=== PATIENT | female | born 1935 | race Caucasian/White ===

== ENCOUNTER 2016-04-24 08:31 | Inpatient (IN) | payer OTHER, BC ==
--- NOTE | 2016-04-24 09:30 | PDOC ---
History of Present Illness - General Chief Complaint: Injury Stated Complaint: LEG PAIN Time Seen by Provider: 04/24/16 08:34 History Source: Patient Exam Limitations: No Limitations - History of Present Illness Initial Comments: 04/24/16 09:30 80-year-old female presents to the ED status post mechanical fall. Patient states was letting her dogs out and had tripped on the carpet causing her to land on her left knee. Patient states was unable to get up secondary to the pain and called EMS who assisted her to the stretcher and brought her to the ER. Patient states no previous injury to the affected area, radiation of pain, headache, chest pain, dizziness, back pain or neck pain. Occurred: reports: just prior to arrival Severity: reports: mild Pain Location: reports: lower extremity Method of Injury: Yes: fall Modifying Factors: improves with: None Loss of Consciousness: no loss of consciousness Associated Symptoms (Fall): trouble walking Past History - Past Medical History Allergies/Adverse Reactions: Allergies Allergy/AdvReac Type Severity Reaction Status Date / Time No Known Allergies Allergy Verified 04/24/16 08:44 Home Medications: Ambulatory Orders Aspirin [ASA -] 81 mg PO DAILY 01/27/15 Bimatoprost [Lumigan] 1 drop IO HS 01/27/15 Brimonidine Tartrate/Timolol [Combigan 0.2%-0.5% Eye Drops] 5 ml OP BID Dorzolamide HCl [Trusopt 2% -] 1 drop OD HS 01/27/15 Furosemide [Lasix -] 40 mg PO DAILY 01/27/15 Insulin Aspart [Novolog] 10 units SQ BID 01/27/15 Metoprolol Succinate [Toprol XL -] 50 mg PO HS 01/27/15 Olmesartan/Hydrochlorothiazide [Benicar Hct 40-25 mg Tablet] 1 each PO DAILY 03/01 Potassium Chloride 10 meq PO DAILY 01/27/15 Rosuvastatin Calcium [Crestor] 40 mg PO HS 01/27/15 Ezetimibe [Zetia] 10 mg PO HS 04/24/16 Insulin (LOG) Aspart [NovoLOG -] 8 unit SQ ASDIR 04/24/16 Insulin Glargine,Hum.rec.anlog [Toukenn Johnson] 20 unit SQ HS 04/24/16 Cardiac Disorders: Yes (uterine) Diabetes: Yes HTN: Yes Hypercholesterolemia: Yes Thyroid Disease: Yes - Surgical History Cardiac Surgery: Yes - Psycho/Social/Smoking Cessation Hx Anxiety: No Suicidal Ideation: No Smoking History: Never smoked Number of Cigarettes Smoked Daily: 0 Information on smoking cessation initiated: No Hx Alcohol Use: No Drug/Substance Use Hx: No Substance Use Type: None Patient Lives Alone: No Lives with/in: spouse/SO Review of Systems - Review of Systems Able to Perform ROS?: Yes Constitutional: No: Symptoms Reported Musculoskeletal: Yes: Joint Pain (left knee), Muscle Pain (left mid thigh) Integumentary: Yes: Bruising (left knee with abrasion) Neurological: No: Symptoms reported Endocrine: No: Symptoms Reported Hematologic/Lymphatic: No: Symptoms Reported *Physical Exam - Vital Signs Last Vital Signs Temp Pulse Resp BP Pulse Ox 97.4 F L 62 20 140/45 98 04/24/16 08:45 04/24/16 08:45 04/24/16 08:45 04/24/16 08:45 04/24/16 08:45 - Physical Exam Comments: 04/24/16 09:32 General Appearance: Yes: Nourished, Appropriately Dressed. No: Apparent Distress Neck: negative: Tender, Supple, Decreased range of motion Respiratory/Chest: negative: Chest Tender Cardiovascular: positive: Regular Rhythm, Regular Rate. negative: Murmur Vascular Pulses: Doralis-Pedis (L): 2+ Extremity: positive: Normal Capillary Refill, Normal Range of Motion. negative : Normal Inspection (noted hematoma and ecchymotic area over the lateral aspect of distal femur. Noted edema and abrasion to the antrior aspect of left patella. No crepitus noted deformity. Normal straight leg raise) Integumentary: positive: Swelling, Ecchymosis Neurologic: positive: Normal Mood/Affect Heart Score/ECG Review - ECG Intrepretation Rhythm: Regular Rhythm (sinus rhythm t 63 with first-degree AV block and right bundle branch block) ED Treatment Course - LABORATORY CBC & Chemistry Diagram: 04/26/16 05:35 04/25/16 05:35 - ADDITIONAL ORDERS Additional order review: Laboratory Results 04/24/16 08:57 POC Glucometer [id number] 04/24/16 08:57 POC Glucometer [id number] - RADIOLOGY Radiology Studies Ordered: Category Date Time Status FEMUR-LEFT [RAD] Stat Radiology 04/24/16 08:49 Ordered KNEE 3 POS-LEFT [RAD] Stat Radiology 04/24/16 09:05 Ordered Medical Decision Making - Medical Decision Making 04/24/16 09:33 Patient status post mechanical fall with ecchymosis and edema over the left distal femur and left patella concerning for fracture. Patient ordered for femur and knee x-ray. Patient also ordered for BGM since she did not take her grandson this morning nor did she eat. BGM within normal limits 04/24/16 10:14 X-ray show no acute findings including fractures. Soft tissue swelling over the mid to distal femur is related to the injury. There is no further indication for imaging as this is where ecchymosis and tenderness correlate. Patient requesting Tylenol. Patient also requesting that she receive her NovoLog and to eat. Patient also requesting to to page Dr. La to see if he is in the hospital. I have called Dr. La overhead who states will be down shortly to see patient prior to discharge. 04/24/16 10:31 Dr. La here for consultation. Patient states feels as if she is unable to stand up patient was assisted to stand with another individual was unable to bear weight on the left lower extremity. Ecchymosis ans edema also has increased to the mid femur and proximal romo. We discussed also the recent elevation in her LFTs. as per Dr. La he is recommending admission with consultation to Dr. López since patient is unable to weight-bear and has this large contusion over her left lower extremity. patient ordered for admission including labs, urine an EKG. Consultation placed for Dr. López 04/24/16 11:03 Laboratory Tests 04/24/16 10:45 WBC 14.6 H D Hgb 10.6 L Hct 32.7 Neutrophils % 90.5 H chest x-ray and urine pending 04/24/16 11:04 Added lactic acid secondary to leukocytosis, and neutrophils shift. 04/24/16 11:34 Area of edema versus area of ecchymosis was outlined at 11:30 to observe for worsening hematoma. Case discussed with Dr. Baca who states will consult as needed. 04/24/16 15:54 As per daughter patient had no episode of blank stare that lasted a few seconds right after stating she was nauseous. Daughter states no tremors, vomiting, or difficulty breathing but states patient appeared pale. Patient concerning for cardiac event including intracranial pathology. Patient ordered for labs including CBC cardiac profile EKG and head CT. Patient also be admitted to telemetry. Dr. Mack made aware *DC/Admit/Observation/Transfer Diagnosis at time of Disposition: Inability to ambulate due to knee, LFT elevation Contusion Qualifiers: Contusion area: knee Laterality: left Diabetes Qualifiers: Diabetes mellitus type: type 2 Diabetes mellitus complication status: without complication Diabetes mellitus intermission coordinator insulin use: with intermission coordinator use Qualified Code(s): E11.9 - Type 2 diabetes mellitus without complications Fall Qualifiers: Encounter type: initial encounter Qualified Code(s): W19.XXXA - Unspecified fall, initial encounter - Discharge Dispostion Condition at time of disposition: Good Admit: Yes - Referrals - Patient Instructions
[2016-04-24] MEDS ORDERED: Insulin (LOG) Aspart 100 UNITS/ML VIAL SQ ONE (09:53)
[2016-04-24] MEDS ORDERED: INSULIN (NOVOLOG) ASPART 100 UNITS/ML 10ML VIAL ONE ×2 (09:56→16:57)
[2016-04-24] MEDS ORDERED: ACETAMINOPHEN 325 MG TABLET (FP) PO ONE (09:56)
[2016-04-24] MEDS ORDERED: ACETAMINOPHEN 325 MG TABLET (FP) ONE (09:57)
[2016-04-24 10:54] LABS: BASOPHIL 0.4 % (0-2.0); EOSINOPHIL 0.3 % (0-4.5); MCH 29.6 pg (25.7-33.7); MCHC 32.5 g/dl (32.0-36.0); MEAN CELL VOLUME 91.2 fl (80-96); MEAN PLT VOLUME 9.5 fl (7.5-11.1); NEUTROPHILS 90.5 % (42.8-82.8); PLATELET COUNT 179 K/MM3 (134-434); RDW 14.2 % (11.6-15.6); WHITE BLOOD COUNT 14.6 K/mm3 (4.0-10.0)
[2016-04-24 11:19] LABS: ALBUMIN 2.9 g/dl (3.4-5.0); BILIRUBIN,TOTAL 0.5 mg/dL (0.2-1.0); CALCIUM 8.7 mg/dL (8.5-10.1); CREATININE 2.3 mg/dL (0.55-1.02); TOT PROT 5.5 g/dl (6.4-8.2)
[2016-04-24] MEDS ORDERED: LOSARTAN 50MG/HCTZ 12.5MG 1 TAB (FP) PO SCH (13:15)
--- NOTE | 2016-04-24 13:36 | HP ---
Admitting History and Physical - Primary Care Physician PCP: Arya La - Admission Chief Complaint: Fell onto left knee in home and unable to get up. History of Present Illness: Patient with multiple comorbidties such as Hypertension,uncontrolled DM, Hyperlipidemia, Diabetic Nephropathy, Hypothroidism, ASHD, Carotid Endarterectomy and Glaucome comes to ER after a mechanical fall at home when she accidentally tripped when turning to go back into her home after letting the dogs outside. There was no prior dizzyness or weakness or chest pain. Patient unable to really get up on her own. No fracture on preliminary Xray but she has developed a huge hematoma above the knee which she cannot bend or walk on. She also was noted to have a WBC of 14,000 and has a hx of uncontrolled DM with nepropathy. 1 week ago had elevated liver enzymes but that is not seen today??? Appropriate cultures have been ordered. 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 Cardiovascular: Yes: CAD, HTN, Hyperlipdemia Renal/: Yes: Renal Inusuff Psych: Yes: Anxiety Musculoskeletal: Yes: Osteoarthritis Endocrine: Yes: Diabetes Mellitus, Hypothyroidism - Past Surgical History Past Surgical History: Yes: CABG, Hysterectomy, Oopherectomy - Smoking History Smoking history: Never smoked Aproximately how many cigarettes per day: 0 - Alcohol/Substance Use Hx Alcohol Use: No History of Substance Use: reports: None - Social History Usual Living Arrangement: Yes: With Spouse History of Recent Travel: No Home Medications - Allergies Allergies/Adverse Reactions: Allergies Allergy/AdvReac Type Severity Reaction Status Date / Time No Known Allergies Allergy Verified 04/24/16 08:44 - Home Medications Home Medications: Ambulatory Orders Aspirin [ASA -] 81 mg PO DAILY 01/27/15 Bimatoprost [Lumigan] 1 drop IO HS 01/27/15 Brimonidine Tartrate/Timolol [Combigan 0.2%-0.5% Eye Drops] 5 ml OP BID Dorzolamide HCl [Trusopt 2% -] 1 drop OD HS 01/27/15 Furosemide [Lasix -] 40 mg PO DAILY 01/27/15 Insulin Aspart [Novolog] 10 units SQ BID 01/27/15 Metoprolol Succinate [Toprol XL -] 50 mg PO HS 01/27/15 Olmesartan/Hydrochlorothiazide [Benicar Hct 40-25 mg Tablet] 1 each PO DAILY 03/01 Potassium Chloride 10 meq PO DAILY 01/27/15 Rosuvastatin Calcium [Crestor] 40 mg PO HS 01/27/15 Ezetimibe [Zetia] 10 mg PO HS 04/24/16 Insulin (LOG) Aspart [NovoLOG -] 8 unit SQ ASDIR 04/24/16 Insulin Glargine,Hum.rec.anlog [Toujeo Solostar] 20 unit SQ HS 04/24/16 Review of Systems - Review of Systems Constitutional: reports: Weakness. denies: Fever Eyes: reports: Floaters HENT: denies: Difficult Swallowing Cardiovascular: denies: Chest Pain Respiratory: reports: SOB on Exertion Gastrointestinal: reports: Constipation Genitourinary: reports: Frequency Musculoskeletal: reports: Extremity Pain Integumentary: reports: Eczema (left tibia) Neurological: reports: Unsteady Gait Pain Intensity: 6 Physical Examination Vital Signs: Vital Signs Temperature 97.4 F L 04/24/16 08:45 Pulse Rate 62 04/24/16 08:45 Respiratory Rate 20 04/24/16 08:45 Blood Pressure 140/45 04/24/16 08:45 O2 Sat by Pulse Oximetry (%) 98 04/24/16 08:45 Constitutional: Yes: Mild Distress Eyes: Yes: Conjunctiva Clear Cardiovascular: Yes: Regular Rate and Rhythm Respiratory: Yes: Diminished Gastrointestinal: Yes: Soft, Abdomen, Obese. No: Tenderness Renal/: No: [place] Present Extremities: Yes: Other (huge hematoma quadriceps above left knee) Edema: LUE: 1+, LLE: 2+ Integumentary: Yes: Skin Tear (left anterior tibia) Neurological: Yes: Alert, Oriented Labs: CBC, BMP 04/24/16 10:45 04/24/16 10:45 Imaging - Results X-ray: Report Reviewed Problem List - Problems (1) Contusion Assessment/Plan: Above left knee due to fall. Code(s): T14.8 - OTHER INJURY OF UNSPECIFIED BODY REGION Qualifiers: Contusion area: knee Laterality: left (2) Diabetes Assessment/Plan: Uncontrolled but just visited Endo Code(s): E11.9 - TYPE 2 DIABETES MELLITUS WITHOUT COMPLICATIONS Qualifiers: Diabetes mellitus type: type 1 Diabetes mellitus complication status: without complication Qualified Code(s): E10.9 - Type 1 diabetes mellitus without complications (3) Fall Assessment/Plan: Mechanical at home; landed on left knee Code(s): W19.XXXA - UNSPECIFIED FALL, INITIAL ENCOUNTER Qualifiers: Encounter type: initial encounter Qualified Code(s): W19.XXXA - Unspecified fall, initial encounter (4) CAD (coronary artery disease) Assessment/Plan: Followed by Cardiology Code(s): I25.10 - ATHSCL HEART DISEASE OF [place] CORONARY ARTERY W/O ANG PCTRS (5) Chronic kidney disease Code(s): N18.9 - CHRONIC KIDNEY DISEASE, UNSPECIFIED (6) HTN (hypertension) Assessment/Plan: On Rx Code(s): I10 - ESSENTIAL (PRIMARY) HYPERTENSION (7) Hematoma Assessment/Plan: Huge hematoma above left knee; Ortho to evaluate Code(s): T14.8 - OTHER INJURY OF UNSPECIFIED BODY REGION (8) Leukocytosis Assessment/Plan: ??Occult infection; C/S ordered. Code(s): D72.829 - ELEVATED WHITE BLOOD CELL COUNT, UNSPECIFIED
[2016-04-24] MEDS: FUROSEMIDE 40 MG TABLET (FP) PO SCH (13:54)
[2016-04-24 13:58] LABS: URINE APPEARANCE CLEAR; URINE BILIRUBIN NEGATIVE (NEGATIVE); URINE COLOR LTYELLOW; URINE GLUCOSE (UA) NEGATIVE (NEGATIVE); URINE KETONE NEGATIVE (NEGATIVE); URINE NITRITE NEGATIVE (NEGATIVE); URINE PROTEIN NEGATIVE (NEGATIVE); URINE UROBILINOGEN NEGATIVE E.U./dl (0.2-1.0)
[2016-04-24 14:00] LABS: URINE BLOOD 1+ (NEGATIVE); URINE LEUK ESTERASE 1+ (NEGATIVE)
[2016-04-24 14:01] LABS: URINE MUCUS RARE; URINE RBC 1 /hpf (0-3); URINE WBC 4 /hpf (3-5)
[2016-04-24 14:46] VITALS: BMI 26.8
--- NOTE | 2016-04-24 15:08 | EKG ---
Test Reason : Blood Pressure : / mmHG Vent. Rate : 063 BPM Atrial Rate : 063 BPM P-R Int : 210 ms QRS Dur : 154 ms QT Int : 504 ms P-R-T Axes : 064 038 -10 degrees QTc Int : 515 ms SINUS RHYTHM WITH 1ST DEGREE A-V BLOCK COMPLETE RIGHT BUNDLE BRANCH BLOCK ABNORMAL ECG WHEN COMPARED WITH ECG OF 27-JAN-2015 21:34, NO SIGNIFICANT CHANGE WAS FOUND Confirmed by YVONNE CARRASCO MD ([id number]) on 04/24/2016 3:07:49 PM Referred By: Confirmed By:YVONNE CARRASCO MD
[2016-04-24 16:14] LABS: BASOPHIL 0.4 % (0-2.0); MCH 29.8 pg (25.7-33.7); MCHC 32.8 g/dl (32.0-36.0); MEAN CELL VOLUME 90.9 fl (80-96); MEAN PLT VOLUME 10.4 fl (7.5-11.1); NEUTROPHILS 84.9 % (42.8-82.8); PLATELET COUNT 197 K/MM3 (134-434)
[2016-04-24] MEDS ORDERED: INSULIN (NOVOLOG) ASPART 100 UNITS/ML 10ML VIAL SQ SCH (16:30)
[2016-04-24] MEDS: INSULIN SLIDING SCALE (NOVOLOG) 1 VIAL SQ SCH (17:02)
[2016-04-24 17:05] LABS: TROPONIN I < 0.02 ng/ml (0.00-0.05)
[2016-04-24] MEDS ORDERED: ACETAMINOPHEN INJECTION 100 ML IVPB ONE (17:20)
[2016-04-24] MEDS: ACETAMINOPHEN 1000 MG/100 ML VIAL (NON FORMULARY) IVPB PRN (17:21)
--- NOTE | 2016-04-24 17:24 | CON.CARD ---
Consult Consult Specialty:: Cardiology Referred by:: Dr. La Reason for Consultation:: Cardiac evaluation - History of Present Illness Chief Complaint: Mechanical fall resulting in left knee hematoma and subsequent possible syncope History of Present Illness: Patient is an 80 year old female well known to our service (sees Dr. Moisés Hanna in the office) with underlying history of CAD, S/P CABG (SUÁREZ to LAD), HTN/HCVD, hypercholesterolemia, Insulin dependent type 2 diabetes mellitus, cerebrovascular disease without residual deficit, carotid stenosis S/P right CEA , CKD, prior history of syncope. She was at home this morning letting the dog out and as she turned, she had a mechanical fall hitting her left knee to the floor. She did not suffer any other visible injuries and did not hit her head. However, fall resulted in a large hematoma in her left knee. She does not have any fractures. She denies chest pain, shortness of breath or palpitations. She denies PND or orthopnea. No fever or chills. Denies headache or lightheadedness. She states that it was a pure mechanical fall. In the ER, she developed brief loss of consciousness unknown reason and currently is being monitored. Family was by her side when this happened. Current ECG shows sinus rhythm with RBBB. She is awake and alert X 3 at this time. Cardiology consultation was called for further evaluation. 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 Cardio/Vascular: Yes: CAD, HTN, Hyperlipdemia Renal/: Yes: Renal Inusuff Psych: Yes: Anxiety Musculoskeletal: Yes: Osteoarthritis Endocrine: Yes: Diabetes Mellitus, Hypothyroidism - Past Surgical History Past Surgical History: Yes: CABG, Carotid Endarterectomy, Hysterectomy, Oopherectomy - Alcohol/Substance Use Hx Alcohol Use: Yes (Social) History of Substance Use: reports: None - Smoking History Smoking history: Never smoked Aproximately how many cigarettes per day: 0 - Social History History of Recent Travel: No Home Medications - Allergies Allergies/Adverse Reactions: Allergies Allergy/AdvReac Type Severity Reaction Status Date / Time No Known Allergies Allergy Verified 04/24/16 08:44 - Home Medications Home Medications: Ambulatory Orders Aspirin [ASA -] 81 mg PO DAILY 01/27/15 Bimatoprost [Lumigan] 1 drop IO HS 01/27/15 Brimonidine Tartrate/Timolol [Combigan 0.2%-0.5% Eye Drops] 5 ml OP BID Dorzolamide HCl [Trusopt 2% -] 1 drop OD HS 01/27/15 Furosemide [Lasix -] 40 mg PO DAILY 01/27/15 Insulin Aspart [Novolog] 10 units SQ BID 01/27/15 Metoprolol Succinate [Toprol XL -] 50 mg PO HS 01/27/15 Olmesartan/Hydrochlorothiazide [Benicar Hct 40-25 mg Tablet] 1 each PO DAILY 03/01 Potassium Chloride 10 meq PO DAILY 01/27/15 Rosuvastatin Calcium [Crestor] 40 mg PO HS 01/27/15 Ezetimibe [Zetia] 10 mg PO HS 04/24/16 Insulin (LOG) Aspart [NovoLOG -] 8 unit SQ ASDIR 04/24/16 Insulin Glargine,Hum.rec.anlog [Toujeo Solostar] 20 unit SQ HS 04/24/16 Family Disease History - Family Disease History Family Disease History: [place]: Sister (Breast CA), Other: Father (CAD) Review of Systems - Review of Systems Constitutional: denies: Chills, Fever Cardiovascular: denies: Chest Pain, Palpitations, Shortness of Breath Respiratory: denies: Cough, Hemoptysis, Orthopnea, PND, SOB, SOB on Exertion Gastrointestinal: denies: Abdominal Pain, Constipation, Diarrhea, Nausea, Rectal Bleeding, Vomiting Genitourinary: denies: Dysuria Musculoskeletal: reports: Joint Pain Neurological: reports: Syncope, Weakness. denies: Dizziness, Headache, Seizure , Unsteady Gait Vital Signs: Vital Signs Temperature 97.4 F L 04/24/16 08:45 Pulse Rate 75 04/24/16 14:10 Respiratory Rate 18 04/24/16 14:10 Blood Pressure 114/47 04/24/16 14:10 O2 Sat by Pulse Oximetry (%) 100 04/24/16 14:10 Neck: Yes: Supple Respiratory: Yes: Regular, CTA Bilaterally Gastrointestinal: Yes: Normal Bowel Sounds, Soft. No: Tenderness Cardiovascular: Yes: Regular Rate and Rhythm JVD: No Carotid Bruit: No PMI: Non-Displaced Heart Sounds: Yes: S1, S2 Murmur: Yes: Systolic Murmur (Soft SM), Grade 1 Musculoskeletal: Yes: Joint Stiffness, Joint Swelling, Other (Hematoma) Edema: No - Other Data Labs, Other Data: CBC, BMP 04/24/16 15:55 04/24/16 10:45 Troponin, BNP 04/24/16 15:55 Troponin I < 0.02 Laboratory Results - last 24 hr 04/24/16 04/24/16 04/24/16 08:57 10:45 10:45 WBC 14.6 H D RBC 3.59 L Hgb 10.6 L Hct 32.7 MCV 91.2 MCHC 32.5 RDW 14.2 Plt Count 179 MPV 9.5 Neutrophils % 90.5 H Lymphocytes % 5.5 L D Monocytes % 3.3 L Eosinophils % 0.3 Basophils % 0.4 Sodium 140 Potassium 4.0 Chloride 99 Carbon Dioxide 30 Anion Gap 11 BUN 67 H D Creatinine 2.3 H Creat Clearance w eGFR 20.35 POC Glucometer [id number] Random Glucose 253 H D Lactic Acid Calcium 8.7 Total Bilirubin 0.5 AST 27 D ALT 38 D Alkaline Phosphatase 74 Creatine Kinase Troponin I Total Protein 5.5 L Albumin 2.9 L Urine Color Urine Appearance Urine pH Ur Specific [place] Urine Protein Urine Glucose (UA) Urine Ketones Urine Blood Urine Nitrite Urine Bilirubin Urine Urobilinogen Ur Leukocyte Esterase Urine RBC Urine WBC Ur Epithelial Cells Urine Mucus 04/24/16 04/24/16 04/24/16 11:39 13:30 15:14 WBC RBC Hgb Hct MCV MCHC RDW Plt Count MPV Neutrophils % Lymphocytes % Monocytes % Eosinophils % Basophils % Sodium Potassium Chloride Carbon Dioxide Anion Gap BUN Creatinine Creat Clearance w eGFR POC Glucometer [id number] Random Glucose Lactic Acid 0.810 Calcium Total Bilirubin AST ALT Alkaline Phosphatase Creatine Kinase Troponin I Total Protein Albumin Urine Color Ltyellow Urine Appearance Clear Urine pH 6.0 Ur Specific [place] 1.011 Urine Protein Negative Urine Glucose (UA) Negative Urine Ketones Negative Urine Blood 1+ H Urine Nitrite Negative Urine Bilirubin Negative Urine Urobilinogen Negative Ur Leukocyte Esterase 1+ H Urine RBC 1 Urine WBC 4 Ur Epithelial Cells Rare Urine Mucus Rare 04/24/16 04/24/16 15:55 15:55 WBC 10.0 D RBC 3.05 L Hgb 9.1 L D Hct 27.7 L D MCV 90.9 MCHC 32.8 RDW 14.0 Plt Count 197 MPV 10.4 Neutrophils % 84.9 H Lymphocytes % 8.3 D Monocytes % 6.4 D Eosinophils % 0.0 D Basophils % 0.4 Sodium Potassium Chloride Carbon Dioxide Anion Gap BUN Creatinine Creat Clearance w eGFR POC Glucometer Random Glucose Lactic Acid Calcium Total Bilirubin AST ALT Alkaline Phosphatase Creatine Kinase 146 Troponin I < 0.02 Total Protein Albumin Urine Color Urine Appearance Urine pH Ur Specific [place] Urine Protein Urine Glucose (UA) Urine Ketones Urine Blood Urine Nitrite Urine Bilirubin Urine Urobilinogen Ur Leukocyte Esterase Urine RBC Urine WBC Ur Epithelial Cells Urine Mucus Sinus rhythm with RBBB Imaging - Results X-ray: Report Reviewed ([facility]em[facility] Xray no fractures) Cat Scan: Report Reviewed (Head CT no intracranial bleed) EKG: Report Reviewed Problem List - Problems (1) Diabetes Code(s): E11.9 - TYPE 2 DIABETES MELLITUS WITHOUT COMPLICATIONS Qualifiers: Diabetes mellitus type: type 2 Diabetes mellitus complication status: without complication Diabetes mellitus fdc insulin use: 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 Qualified Code(s): E11.9 - Type 2 diabetes mellitus without complications; 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 transplanted heart: [place] heart Associated angina: without angina Qualified Code(s): I25.10 - Atherosclerotic heart disease of [place] coronary artery without angina pectoris (5) Chronic kidney disease Code(s): N18.9 - CHRONIC KIDNEY DISEASE, UNSPECIFIED (6) HTN (hypertension) Code(s): I10 - ESSENTIAL (PRIMARY) HYPERTENSION Qualifiers: Hypertension type: essential hypertension Qualified Code(s): I10 - Essential (primary) hypertension (7) Syncope and collapse Code(s): R55 - SYNCOPE AND COLLAPSE (8) Hypercholesterolemia Code(s): E78.0 - PURE HYPERCHOLESTEROLEMIA * DO NOT USE * Assessment/Plan 1. Mechanical fall resulting in large left knee hematoma 2. Syncope not related to above fall, etiology unclear 3. CAD S/P CABG, angina 4. HTN/HCVD 5. Hypercholesterolemia 6. Insulin dependent type 2 diabetes mellitus 7. Hypothyroidism PLAN: 1. Await orthopedic evaluation - possibly may need to drain hematoma 2. Transthoracic echocardiography if not done recently 3. Continue Metoprolol ER and Benicar or equivalent 4. ASA may need to be held if any intervention is contemplated 5. Continue Crestor and Zetia 6. Diuretics with caution - Lasix PO 7. Monitor on telemetry Further plans are to follow Pablito Bell MD
[2016-04-24] MEDS ORDERED: PT OWN MED DRAWER 7, Y5N ONE (21:11)
[2016-04-24] MEDS: METOPROLOL SUCCINATE 50 MG TAB.SR.24H (FP) PO SCH (21:57)
[2016-04-24] MEDS: INSULIN DETEMIR 100 UNITS/ML MDV SQ SCH (21:57)
[2016-04-24] MEDS: EZETIMIBE 10 MG TABLET (FP) PO SCH (21:57)
[2016-04-24] MEDS ORDERED: LATANOPROST 0.005% OPHTH SOLN 2.5ML BOTTLE OD SCH (22:00)
[2016-04-24] MEDS ORDERED: DORZOLAMIDE 2% HCL OPHTHALMIC SOLUTION 10 ML BOTTLE OD SCH (22:00)
[2016-04-24] MEDS ORDERED: LATANOPROST 0.005% OPHTH SOLN 2.5ML BOTTLE OU SCH (22:30)
[2016-04-24] MEDS: BRIMONIDINE TARTRATE 0.2% OPHTHALMIC 5 ML BOTTLE OD SCH (22:30)
[2016-04-24] MEDS: DORZOLAMIDE 2% HCL OPHTHALMIC SOLUTION 10 ML BOTTLE OU SCH (22:40)
[2016-04-25] MEDS: DORZOLAMIDE 2% HCL OPHTHALMIC SOLUTION 10 ML BOTTLE OU SCH ×3 (06:15→22:31)
[2016-04-25] MEDS: INSULIN SLIDING SCALE (NOVOLOG) 1 VIAL SQ SCH ×2 (06:15→17:46)
[2016-04-25 06:57] LABS: CALCIUM 8.5 mg/dL (8.5-10.1); CREATININE 2.4 mg/dL (0.55-1.02)
[2016-04-25 06:58] LABS: MCH 29.8 pg (25.7-33.7); MCHC 32.8 g/dl (32.0-36.0); MEAN CELL VOLUME 90.7 fl (80-96); MEAN PLT VOLUME 10.4 fl (7.5-11.1); PLATELET COUNT 193 K/MM3 (134-434); RDW 13.7 % (11.6-15.6); WHITE BLOOD COUNT 7.3 K/mm3 (4.0-10.0)
[2016-04-25] MEDS: ACETAMINOPHEN 1000 MG/100 ML VIAL (NON FORMULARY) IVPB PRN (08:27)
--- NOTE | 2016-04-25 08:31 | PN ---
Progress Note, Physician Chief Complaint: Pain left knee. History of Present Illness: Patient with a Hx. of Diabetic Nephropathy, ASHD with CABG, Hypertension, Hypothyroidism, CVA and Carotid Endarterectomy had a mechanical fall at home yesterday onto her left knee. No other trauma noted although when she had a few seconds of syncope in the ER a Brain CT was done and no acute finding was noted. Ortho saw patient but no note written. ?? Drain hematoma. BP is lower today and HB fell to 8.3; will follow. Will hold BP Rx and start FeSo4. - Current Medication List Current Medications: Active Medications Acetaminophen (Tylenol -) 650 mg PO Q6H PRN PRN Reason: FEVER OR PAIN Acetaminophen (Ofirmev Injection -) 1,000 mg IVPB Q6H PRN PRN Reason: FEVER OR PAIN Stop: 04/25/16 09:05 Last Admin: 04/24/16 17:21 Dose: 1,000 mg Aspirin (Ecotrin -) 81 mg PO DAILY [facility] Brimonidine Tartrate (Alphagan 0.2% -) 1 drop OD BID [facility] Last Admin: 04/24/16 22:30 Dose: 1 drop Dorzolamide HCl (Trusopt 2%) 1 drop OU TID [facility] Last Admin: 04/25/16 06:15 Dose: 1 drop Ezetimibe (Zetia -) 10 mg PO HS [facility] Last Admin: 04/24/16 21:57 Dose: 10 mg Furosemide (Lasix -) 40 mg PO DAILY [facility] Last Admin: 04/24/16 13:54 Dose: Not Given Insulin Aspart (Novolog Vial Sliding Scale -) 1 vial SQ BIDAC [facility] PRN Reason: Protocol Last Admin: 04/25/16 06:15 Dose: Not Given Insulin Detemir (Levemir Vial) 20 units SQ HS [facility] Last Admin: 04/24/16 21:57 Dose: 20 units Latanoprost (Xalatan 0.005% Eye Drops -) 1 drop OU HS [facility] Metoprolol Succinate (Toprol Xl -) 50 mg PO HS [facility] Last Admin: 04/24/16 21:57 Dose: Not Given Potassium Chloride (K-Dur -) 10 meq PO DAILY [facility] - Objective Vital Signs: Vital Signs Temperature 98.7 F 04/25/16 05:00 Pulse Rate 76 04/25/16 05:00 Respiratory Rate 20 04/25/16 05:00 Blood Pressure 117/49 04/25/16 05:00 O2 Sat by Pulse Oximetry (%) 100 04/24/16 20:24 Constitutional: Yes: Calm, Pallor Eyes: Yes: Conjunctiva Clear Cardiovascular: Yes: Regular Rate and Rhythm Respiratory: Yes: Diminished. No: Rales Gastrointestinal: Yes: Soft Genitourinary: No: [place] Present Extremities: Yes: Other (Large Hematoma: Left knee extending to Quadriceps.) Edema: LLE: 2+, RLE: Trace Neurological: Yes: Alert, Oriented Labs: CBC, BMP 04/25/16 05:35 04/25/16 05:35 Problem List - Problems (1) Hematoma Assessment/Plan: Left knee and above causing Hb to drop to 8.3;await Ortho note ;?? drain Code(s): T14.8 - OTHER INJURY OF UNSPECIFIED BODY REGION (2) Contusion Code(s): T14.8 - OTHER INJURY OF UNSPECIFIED BODY REGION Qualifiers: Contusion area: knee Laterality: left (3) Diabetes Assessment/Plan: BGM's being followed. Code(s): E11.9 - TYPE 2 DIABETES MELLITUS WITHOUT COMPLICATIONS Qualifiers: Diabetes mellitus type: type 2 Diabetes mellitus complication status: without complication Diabetes mellitus shelter insulin use: with middle or intermediate school principal use Qualified Code(s): E11.9 - Type 2 diabetes mellitus without complications (4) Fall Assessment/Plan: Mechanical fall at home onto left knee. Code(s): W19.XXXA - UNSPECIFIED FALL, INITIAL ENCOUNTER Qualifiers: Encounter type: initial encounter Qualified Code(s): W19.XXXA - Unspecified fall, initial encounter (5) CAD (coronary artery disease) Assessment/Plan: S/P CABG Seen by Cardiology. Code(s): I25.10 - ATHSCL HEART DISEASE OF [place] CORONARY ARTERY W/O ANG PCTRS Qualifiers: Coronary Disease-Associated Artery/Lesion type: [place] artery [place] vs. transplanted heart: [place] heart Associated angina: without angina Qualified Code(s): I25.10 - Atherosclerotic heart disease of [place] coronary artery without angina pectoris (6) Chronic kidney disease Assessment/Plan: Slightly higher values today; to hold lasix Code(s): N18.9 - CHRONIC KIDNEY DISEASE, UNSPECIFIED (7) HTN (hypertension) Code(s): I10 - ESSENTIAL (PRIMARY) HYPERTENSION Qualifiers: Hypertension type: essential hypertension Qualified Code(s): I10 - Essential (primary) hypertension (8) Leukocytosis Assessment/Plan: improved Code(s): D72.829 - ELEVATED WHITE BLOOD CELL COUNT, UNSPECIFIED (9) Acute blood loss anemia Assessment/Plan: Hb 11 to 8.3 secondary to large hematoma. Code(s): D62 - ACUTE POSTHEMORRHAGIC ANEMIA
--- NOTE | 2016-04-25 09:28 | PN ---
Progress Note (short form) - Note Progress Note: Pt seen and examined in ER last night, and this morning. She is an 80 yo F 1 day s/p fall directly onto her left knee. On ASA. PE Left knee effusion, and swelling of the surrounding soft tissues, as well as the manav-lateral thigh. Moderately tense hematoma. No NV compromise. Foot is W and WP, good capillary refill, no signs of a dislocated knee. Grossly NVI. Good ROM of the left knee, ankle, foot, toes. 5/5 Quadriceps strength in extension, no deficits. Xrays Are nl, no acute bony pathology. Imp s/p fall with a large moderately tense superficial hematoma left thigh. Rec So surgery or aspiration for now. The tamponade effect is the only thing stopping the hematoma from continuing, and expanding, especially with the pt being on ASA. P.T., WBAT, ROM exercises. Will watch, may aspirate in the future, may not.
[2016-04-25] MEDS ORDERED: LUMIGAN EYE OD SCH (10:00)
[2016-04-25 10:42] LABS: ERYTHROCYTE SEDIMENTATION RATE 25 mm/hr (0-30)
[2016-04-25] MEDS: ASPIRIN COATED 81 MG TABLET.EC PO SCH (10:42)
[2016-04-25] MEDS: ASCORBIC ACID 500 MG TABLET (FP) PO SCH (10:43)
[2016-04-25] MEDS: POTASSIUM CHLORIDE TABS 10 MEQ TABLET.ER (FP) PO SCH (10:43)
[2016-04-25] MEDS: FERROUS SO4 325 MG TABLET (FP) PO SCH (10:43)
[2016-04-25] MEDS: BRIMONIDINE TARTRATE 0.2% OPHTHALMIC 5 ML BOTTLE OD SCH ×2 (10:47→22:31)
--- NOTE | 2016-04-25 13:37 | EKG ---
Test Reason : Blood Pressure : / mmHG Vent. Rate : 065 BPM Atrial Rate : 065 BPM P-R Int : 202 ms QRS Dur : 144 ms QT Int : 504 ms P-R-T Axes : 077 039 010 degrees QTc Int : 524 ms NORMAL SINUS RHYTHM RIGHT BUNDLE BRANCH BLOCK ABNORMAL ECG WHEN COMPARED WITH ECG OF 24-APR-2016 10:50, NO SIGNIFICANT CHANGE WAS FOUND Confirmed by EDITH SANDOVAL MD ([id number]) on 04/25/2016 1:37:25 PM Referred By: Confirmed By:EDITH SANDOVAL MD
--- NOTE | 2016-04-25 14:02 | PN ---
Progress Note (short form) - Note Progress Note: S: 80 year old female, history of coronary artery disease s/p CABG, s/p PCI/ stenting, diabetes mellitus, diabetic neuropathy, hypertension, s/p right carotid endarectomy. Patient sustained close injury to the left knee and leg after she tripped and felt, denies any lightheadedness, dizziness, presyncope or syncope, no history of chest pain or discomfort either at rest of exertion. No dyspnea on exertion or rest. No PND or orthopnea. Patient states that she ambulates with the help of a walker. Active Medications Generic Name Dose Route Start Last Admin Trade Name Freq PRN Reason Stop Dose Admin Acetaminophen 650 mg 04/24/16 13:12 Tylenol - PO Q6H PRN FEVER OR PAIN Ascorbic Acid 500 mg 04/25/16 10:00 04/25/16 10:43 Vitamin C - PO 500 mg DAILY [facility] Administration Aspirin 81 mg 04/25/16 10:00 04/25/16 10:42 Ecotrin - PO 81 mg DAILY [facility] Administration Brimonidine Tartrate 1 drop 04/24/16 22:15 04/25/16 10:47 Alphagan 0.2% - OD 1 drop BID [facility] Administration Dorzolamide HCl 1 drop 04/24/16 22:15 04/25/16 06:15 Trusopt 2% OU 1 drop TID [facility] Administration Ezetimibe 10 mg 04/24/16 22:00 04/24/16 21:57 Zetia - PO 10 mg HS [facility] Administration Ferrous Sulfate 325 mg 04/25/16 10:00 04/25/16 10:43 Feosol - PO 325 mg DAILY [facility] Administration Furosemide 40 mg 04/24/16 13:15 04/24/16 13:54 Lasix - PO Not Given DAILY [facility] Insulin Aspart 1 vial 04/24/16 16:30 04/25/16 06:15 Novolog Vial Sliding Scale - SQ Not Given BIDAC [facility] Protocol Insulin Detemir 20 units 04/24/16 22:00 04/24/16 21:57 Levemir Vial SQ 20 units HS [facility] Administration Latanoprost 1 drop 04/25/16 22:00 Xalatan 0.005% Eye Drops - OU HS [facility] Metoprolol Succinate 50 mg 04/24/16 22:00 04/24/16 21:57 Toprol Xl - PO Not Given HS [facility] Non-Formulary Medication 0 each 04/25/16 10:00 Patient's Own Med OD DAILY [facility] Potassium Chloride 10 meq 04/25/16 10:00 04/25/16 10:43 K-Dur - PO 10 meq DAILY [facility] Administration O: 80 year old female was in no acute distress, no pallor, cyanosis, clubbing, or jaundice. Last Vital Signs Temp Pulse Resp BP Pulse Ox 98.6 F 79 Regular 18 106/50 98 04/25/16 09:00 04/25/16 09:00 04/25/16 09:00 04/25/16 09:00 04/25/16 09:00 Neck: Supple, no JVD, negative HJR, carotids were equal and upstrokes were normal, no thyromegaly appreciated. Heart: PMI was in the 5th intercostal space, no heaves or thrills, S1 and S2 were normal. No murmurs or gallops were appreciated. Lungs: Clear on auscultation bilaterally. Abdomen: Soft, nontender, no hepatosplenomegaly appreciated, and no palpable masses were felt. Extremities: No calf tenderness, large area of ecchymosis and swelling extending above and below the left knee. CBC, BMP 04/25/16 05:35 04/25/16 05:35 Laboratory Results - last 24 hr 04/24/16 04/24/16 04/24/16 13:30 15:14 15:55 WBC RBC Hgb Hct MCV MCHC RDW Plt Count MPV Neutrophils % Lymphocytes % Monocytes % Eosinophils % Basophils % ESR Sodium Potassium Chloride Carbon Dioxide Anion Gap BUN Creatinine POC Glucometer [phone] Random Glucose Calcium Creatine Kinase 146 Troponin I < 0.02 Urine RBC 1 Urine WBC 4 Ur Epithelial Cells Rare Urine Mucus Rare 04/24/16 04/24/16 04/25/16 15:55 21:38 05:35 WBC 10.0 D 7.3 RBC 3.05 L 2.77 L Hgb 9.1 L D 8.3 L Hct 27.7 L D 25.2 L MCV 90.9 90.7 MCHC 32.8 32.8 RDW 14.0 13.7 Plt Count 197 193 MPV 10.4 10.4 Neutrophils % 84.9 H Lymphocytes % 8.3 D Monocytes % 6.4 D Eosinophils % 0.0 D Basophils % 0.4 ESR 25 Sodium Potassium Chloride Carbon Dioxide Anion Gap BUN Creatinine POC Glucometer 320 Random Glucose Calcium Creatine Kinase Troponin I Urine RBC Urine WBC Ur Epithelial Cells Urine Mucus 04/25/16 04/25/16 05:35 05:55 WBC RBC Hgb Hct MCV MCHC RDW Plt Count MPV Neutrophils % Lymphocytes % Monocytes % Eosinophils % Basophils % ESR Sodium 139 Potassium 3.6 Chloride 100 Carbon Dioxide 28 Anion Gap 11 BUN 70 H Creatinine 2.4 H POC Glucometer 179 Random Glucose 171 H D Calcium 8.5 Creatine Kinase Troponin I Urine RBC Urine WBC Ur Epithelial Cells Urine Mucus Impression: (1) CAD (coronary artery disease) Code(s): I25.10 - ATHSCL HEART DISEASE OF [place] CORONARY ARTERY W/O ANG PCTRS Qualifiers: Coronary Disease-Associated Artery/Lesion type: [place] artery [place] vs. transplanted heart: [place] heart Associated angina: without angina Qualified Code(s): I25.10 - Atherosclerotic heart disease of [place] coronary artery without angina pectoris (2) Diabetes Mellitus Code(s): E11.9 - TYPE 2 DIABETES MELLITUS WITHOUT COMPLICATIONS Qualifiers: Diabetes mellitus type: type 2 Diabetes mellitus complication status: without complication Diabetes mellitus supervisor intermediates insulin use: with longterm use Qualified Code(s): E11.9 - Type 2 diabetes mellitus without complications; Z79.4 - roasterman (current) use of insulin (3) History of Fall Code(s): W19.XXXA - UNSPECIFIED FALL, INITIAL ENCOUNTER Qualifiers: Encounter type: initial encounter Qualified Code(s): W19.XXXA - Unspecified fall, initial encounter (4) Left knee, Thigh and calf Hematoma Code(s): T14.8 - OTHER INJURY OF UNSPECIFIED BODY REGION (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 Risk modifications. 2. Close follow up of hemoglobin/hematocrit. 3. Strict control of diabetes mellitus. Attestation: Documentation prepared by Jose Zheng, acting as emergency medical technician/driver for Rio Mayo MD.
[2016-04-25] MEDS ORDERED: INSULIN (NOVOLOG) ASPART 100 UNITS/ML 10ML VIAL ONE (17:46)
[2016-04-25] MEDS ORDERED: LATANOPROST 0.005% OPHTH SOLN 2.5ML BOTTLE OU SCH (22:00)
[2016-04-25] MEDS ORDERED: PT OWN MED DRAWER 7, Y5N ONE (22:15)
[2016-04-25] MEDS: INSULIN DETEMIR 100 UNITS/ML MDV SQ SCH (22:30)
[2016-04-25] MEDS: EZETIMIBE 10 MG TABLET (FP) PO SCH (22:32)
[2016-04-25] MEDS: METOPROLOL SUCCINATE 50 MG TAB.SR.24H (FP) PO SCH (23:17)
[2016-04-25] MEDS: ACETAMINOPHEN 325 MG TABLET (FP) PO PRN (23:22)
[2016-04-26] MEDS ORDERED: ACETAMINOPHEN 1000 MG/100 ML VIAL (NON FORMULARY) IVPB PRN ×2 (05:58→11:21)
[2016-04-26] MEDS: DORZOLAMIDE 2% HCL OPHTHALMIC SOLUTION 10 ML BOTTLE OU SCH ×3 (06:16→21:20)
[2016-04-26] MEDS: INSULIN SLIDING SCALE (NOVOLOG) 1 VIAL SQ SCH ×2 (06:20→17:07)
[2016-04-26 07:35] LABS: BASOPHIL 0.7 % (0-2.0); MCHC 33.3 g/dl (32.0-36.0); MEAN CELL VOLUME 90.2 fl (80-96); MEAN PLT VOLUME 10.2 fl (7.5-11.1); NEUTROPHILS 68.3 % (42.8-82.8); PLATELET COUNT 147 K/MM3 (134-434); RDW 14.1 % (11.6-15.6); WHITE BLOOD COUNT 5.2 K/mm3 (4.0-10.0)
[2016-04-26 08:04] LABS: CALCIUM 8.9 mg/dL (8.5-10.1); CREATININE 2.2 mg/dL (0.55-1.02)
[2016-04-26] MEDS: POTASSIUM CHLORIDE TABS 10 MEQ TABLET.ER (FP) PO SCH (10:28)
[2016-04-26] MEDS: FERROUS SO4 325 MG TABLET (FP) PO SCH (10:28)
[2016-04-26] MEDS: ASCORBIC ACID 500 MG TABLET (FP) PO SCH (10:29)
[2016-04-26] MEDS: BRIMONIDINE TARTRATE 0.2% OPHTHALMIC 5 ML BOTTLE OD SCH ×2 (10:30→21:19)
[2016-04-26] MEDS: FUROSEMIDE 40 MG TABLET (FP) PO SCH (11:00)
[2016-04-26] MEDS ORDERED: FUROSEMIDE 40 MG/4 ML INJECTABLE VIAL IVPUSH SCH (11:07)
--- NOTE | 2016-04-26 11:21 | PN ---
Progress Note, Physician Chief Complaint: Patient says she is light headed and has pain left knee. History of Present Illness: Patient with multiple illnesses including CABG, DM uncontrolled,hypertension; Hx CVA and Carotid Endarterectomy had a mechanical fall at home sustaining a large hematoma over her left knee and Quadriceps. No Fx on Xray. Her hemoglobin has fallen from 10.6 GM to 7.5GM today and she is lightheaded in spite on not receiving her BP Rx and Lasix. With her medical history I feel 1 unit packed cells is indicated and we will follow with lasix 40mg IV X1. Followup[ lab will be done. She also has a great deal od edema below her left knee whicj=h I believe is due to her injury but I will order a venous duplex sonogram. - Current Medication List Current Medications: Active Medications Acetaminophen (Tylenol -) 650 mg PO Q6H PRN PRN Reason: FEVER OR PAIN Last Admin: 04/25/16 23:22 Dose: 650 mg Acetaminophen (Ofirmev Injection -) 1,000 mg IVPB Q6H PRN Last Admin: 04/26/16 10:47 Dose: 1,000 mg Ascorbic Acid (Vitamin C -) 500 mg PO DAILY [facility] Last Admin: 04/26/16 10:29 Dose: 500 mg Aspirin (Ecotrin -) 81 mg PO DAILY [facility] Last Admin: 04/25/16 10:42 Dose: 81 mg Brimonidine Tartrate (Alphagan 0.2% -) 1 drop OD BID [facility] Last Admin: 04/26/16 10:30 Dose: 1 drop Dorzolamide HCl (Trusopt 2%) 1 drop OU TID [facility] Last Admin: 04/26/16 06:16 Dose: 1 drop Ezetimibe (Zetia -) 10 mg PO HS [facility] Last Admin: 04/25/16 22:32 Dose: 10 mg Ferrous Sulfate (Feosol -) 325 mg PO DAILY [facility] Last Admin: 04/26/16 10:28 Dose: 325 mg Furosemide (Lasix -) 40 mg PO DAILY [facility] Last Admin: 04/24/16 13:54 Dose: Not Given Furosemide (Lasix Injection -) 40 mg IVPUSH ONCE ONE Stop: 04/26/16 11:08 Insulin Aspart (Novolog Vial Sliding Scale -) 1 vial SQ BIDAC [facility] PRN Reason: Protocol Last Admin: 04/26/16 06:20 Dose: Not Given Insulin Detemir (Levemir Vial) 20 units SQ [facility] Last Admin: 04/25/16 22:30 Dose: 20 units Metoprolol Succinate (Toprol Xl -) 50 mg PO [facility] Last Admin: 04/25/16 23:17 Dose: 50 mg Lumigan Eye Drops Patient's Own Medication (Non- Formulary) 0 each OD DAILY [facility] Potassium Chloride (K-Dur -) 10 meq PO DAILY [facility] Last Admin: 04/26/16 10:28 Dose: 10 meq - Objective Vital Signs: Vital Signs Temperature 98.7 F 04/26/16 05:05 Pulse Rate 70 04/26/16 02:11 Respiratory Rate 18 04/26/16 05:05 Blood Pressure 116/44 04/26/16 05:05 O2 Sat by Pulse Oximetry (%) 98 04/25/16 20:16 Constitutional: Yes: Calm, Pallor Neck: Yes: Other (scars from surgery) Cardiovascular: Yes: Regular Rate and Rhythm Respiratory: Yes: Diminished Gastrointestinal: Yes: Soft Musculoskeletal: Yes: Joint Swelling (left knee) Edema: LLE: 3+, RLE: Trace Neurological: Yes: Alert, Oriented Labs: CBC, BMP 04/26/16 05:35 04/26/16 05:35 Problem List - Problems (1) Hematoma Assessment/Plan: Large hematoma causing marked drop in Hb to 7.5 GM. Will transfuse as she is symptomatic and I expect a further decrease even with Iron Rx. Code(s): T14.8 - OTHER INJURY OF UNSPECIFIED BODY REGION (2) Contusion Assessment/Plan: Left knee due to fall; seen by Ortho MD Code(s): T14.8 - OTHER INJURY OF UNSPECIFIED BODY REGION Qualifiers: Contusion area: knee Laterality: left (3) Diabetes Assessment/Plan: will resume her novolog 10 u before breakfast and dinner and 8u before lunch tomorrow if BGM trend higher again. Code(s): E11.9 - TYPE 2 DIABETES MELLITUS WITHOUT COMPLICATIONS Qualifiers: Diabetes mellitus type: type 2 Diabetes mellitus complication status: without complication Diabetes mellitus detention insulin use: with middle or intermediate school principal use Qualified Code(s): E11.9 - Type 2 diabetes mellitus without complications (4) Fall Assessment/Plan: home mechanical fall onto left knee. Code(s): W19.XXXA - UNSPECIFIED FALL, INITIAL ENCOUNTER Qualifiers: Encounter type: initial encounter Qualified Code(s): W19.XXXA - Unspecified fall, initial encounter (5) CAD (coronary artery disease) Assessment/Plan: S/P CABG Code(s): I25.10 - ATHSCL HEART DISEASE OF [place] CORONARY ARTERY W/O ANG PCTRS Qualifiers: Coronary Disease-Associated Artery/Lesion type: [place] artery [place] vs. transplanted heart: [place] heart Associated angina: without angina Qualified Code(s): I25.10 - Atherosclerotic heart disease of [place] coronary artery without angina pectoris (6) Chronic kidney disease Assessment/Plan: Lab stable ; to follow Code(s): N18.9 - CHRONIC KIDNEY DISEASE, UNSPECIFIED (7) HTN (hypertension) Code(s): I10 - ESSENTIAL (PRIMARY) HYPERTENSION Qualifiers: Hypertension type: essential hypertension Qualified Code(s): I10 - Essential (primary) hypertension (8) Leukocytosis Code(s): D72.829 - ELEVATED WHITE BLOOD CELL COUNT, UNSPECIFIED (9) Acute blood loss anemia Assessment/Plan: to transfuse 1 unit packed cells. cbc AM Code(s): D62 - ACUTE POSTHEMORRHAGIC ANEMIA
[2016-04-26] MEDS: ASPIRIN COATED 81 MG TABLET.EC PO SCH (13:58)
[2016-04-26] MEDS ORDERED: PT OWN MED DRAWER 7, Y5N ONE (20:59)
[2016-04-26] MEDS: INSULIN DETEMIR 100 UNITS/ML MDV SQ SCH (21:14)
[2016-04-26] MEDS: METOPROLOL SUCCINATE 50 MG TAB.SR.24H (FP) PO SCH (21:17)
[2016-04-26] MEDS: EZETIMIBE 10 MG TABLET (FP) PO SCH (21:17)
[2016-04-27] MEDS: DORZOLAMIDE 2% HCL OPHTHALMIC SOLUTION 10 ML BOTTLE OU SCH ×2 (05:42→13:30)
[2016-04-27] MEDS: INSULIN SLIDING SCALE (NOVOLOG) 1 VIAL SQ SCH (06:01)
[2016-04-27 08:11] LABS: BASOPHIL 0.8 % (0-2.0); EOSINOPHIL 1.1 % (0-4.5); MCH 30.9 pg (25.7-33.7); MCHC 34.3 g/dl (32.0-36.0); MEAN CELL VOLUME 89.9 fl (80-96); MEAN PLT VOLUME 9.9 fl (7.5-11.1); NEUTROPHILS 72.9 % (42.8-82.8); PLATELET COUNT 183 K/MM3 (134-434); RDW 13.7 % (11.6-15.6); WHITE BLOOD COUNT 6.1 K/mm3 (4.0-10.0)
[2016-04-27 08:34] LABS: CALCIUM 8.7 mg/dL (8.5-10.1)
--- NOTE | 2016-04-27 08:34 | PN ---
Progress Note (short form) - Note Progress Note: Ortho Pt seen and examined--> improving decr swelling and ttp, rom 0-100 calf soft, nt, nvi a/p PT ROM exercises, wbat continue to observe will follow d/w Dr. López
[2016-04-27] MEDS: BRIMONIDINE TARTRATE 0.2% OPHTHALMIC 5 ML BOTTLE OD SCH (09:57)
[2016-04-27] MEDS: ACETAMINOPHEN 325 MG TABLET (FP) PO PRN (09:58)
[2016-04-27] MEDS: POTASSIUM CHLORIDE TABS 10 MEQ TABLET.ER (FP) PO SCH (09:59)
[2016-04-27] MEDS: ASCORBIC ACID 500 MG TABLET (FP) PO SCH (09:59)
--- NOTE | 2016-04-27 09:59 | PN ---
Progress Note, Physician Chief Complaint: Less light headed today. History of Present Illness: Patient with mechanical fall at home and developed large hematoma left knee up to quadriceps muscle causing dramatic fall of Hb to 7.5 and lower BP readings off her Lasix and BP Rx. She also did not want to go with the physical therapist yesterday due to weakness. She was given 1 unit of packed cells and a Lasix IV post transfusion. Her Hb is up to admission level of 1o.4 GM but her pressure is still low normal for her. I will restart Lasix PO but hold BP Rx. A venous duplex of lower extremities was negative for DVT. Will see how she does with PT today; ??Short term Rehab. - Current Medication List Current Medications: Active Medications Acetaminophen (Tylenol -) 650 mg PO Q6H PRN PRN Reason: FEVER OR PAIN Last Admin: 04/25/16 23:22 Dose: 650 mg Ascorbic Acid (Vitamin C -) 500 mg PO DAILY [facility] Last Admin: 04/26/16 10:29 Dose: 500 mg Aspirin (Ecotrin -) 81 mg PO DAILY [facility] Last Admin: 04/26/16 13:58 Dose: 81 mg Brimonidine Tartrate (Alphagan 0.2% -) 1 drop OD BID [facility] Last Admin: 04/26/16 21:19 Dose: 1 drop Dorzolamide HCl (Trusopt 2%) 1 drop OU TID [facility] Last Admin: 04/27/16 05:42 Dose: 1 drop Ezetimibe (Zetia -) 10 mg PO HS [facility] Last Admin: 04/26/16 21:17 Dose: 10 mg Ferrous Sulfate (Feosol -) 325 mg PO DAILY [facility] Last Admin: 04/26/16 10:28 Dose: 325 mg Furosemide (Lasix -) 40 mg PO DAILY [facility] Last Admin: 04/26/16 11:00 Dose: 40 mg Insulin Aspart (Novolog Vial Sliding Scale -) 1 vial SQ BIDAC [facility] PRN Reason: Protocol Last Admin: 04/27/16 06:01 Dose: Not Given Insulin Detemir (Levemir Vial) 20 units SQ [facility] Last Admin: 04/26/16 21:14 Dose: 20 units Metoprolol Succinate (Toprol Xl -) 50 mg PO [facility] Last Admin: 04/26/16 21:17 Dose: 50 mg Lumigan Eye Drops Patient's Own Medication (Non- Formulary) 0 each OD DAILY [facility] Potassium Chloride (K-Dur -) 10 meq PO DAILY [facility] Last Admin: 04/26/16 10:28 Dose: 10 meq - Objective Vital Signs: Vital Signs Temperature 98.0 F 04/27/16 06:00 Pulse Rate 60 04/27/16 06:00 Respiratory Rate 20 04/27/16 06:00 Blood Pressure 114/39 04/27/16 06:00 O2 Sat by Pulse Oximetry (%) 96 04/26/16 21:00 Constitutional: Yes: Calm, Pallor Eyes: Yes: Conjunctiva Clear Cardiovascular: Yes: Regular Rate and Rhythm Respiratory: Yes: Diminished. No: Rales Gastrointestinal: Yes: Soft Genitourinary: No: [place] Present Edema: LLE: 2+, RLE: 1+ Neurological: Yes: Alert, Oriented Labs: CBC, BMP 04/27/16 06:30 04/27/16 06:30 Problem List - Problems (1) Hematoma Assessment/Plan: Still with large hematoma left knee extending above to quadriceps muscle. Code(s): T14.8 - OTHER INJURY OF UNSPECIFIED BODY REGION (2) Contusion Assessment/Plan: Slowly resolving Code(s): T14.8 - OTHER INJURY OF UNSPECIFIED BODY REGION Qualifiers: Contusion area: knee Laterality: left (3) Diabetes Assessment/Plan: BGM's being followed. Code(s): E11.9 - TYPE 2 DIABETES MELLITUS WITHOUT COMPLICATIONS Qualifiers: Diabetes mellitus type: type 2 Diabetes mellitus complication status: without complication Diabetes mellitus intermediate manager insulin use: with [facility] use Qualified Code(s): E11.9 - Type 2 diabetes mellitus without complications (4) Fall Assessment/Plan: causing left knee hematoma; seen by Ortho MD Code(s): W19.XXXA - UNSPECIFIED FALL, INITIAL ENCOUNTER Qualifiers: Encounter type: initial encounter Qualified Code(s): W19.XXXA - Unspecified fall, initial encounter (5) CAD (coronary artery disease) Assessment/Plan: seen by Cardiology MD. Code(s): I25.10 - ATHSCL HEART DISEASE OF [place] CORONARY ARTERY W/O ANG PCTRS Qualifiers: Coronary Disease-Associated Artery/Lesion type: [place] artery [place] vs. transplanted heart: [place] heart Associated angina: without angina Qualified Code(s): I25.10 - Atherosclerotic heart disease of [place] coronary artery without angina pectoris (6) Chronic kidney disease Assessment/Plan: Lab slightly improved. Code(s): N18.9 - CHRONIC KIDNEY DISEASE, UNSPECIFIED (7) HTN (hypertension) Code(s): I10 - ESSENTIAL (PRIMARY) HYPERTENSION Qualifiers: Hypertension type: essential hypertension Qualified Code(s): I10 - Essential (primary) hypertension (8) Leukocytosis Assessment/Plan: resolved Code(s): D72.829 - ELEVATED WHITE BLOOD CELL COUNT, UNSPECIFIED (9) Acute blood loss anemia Assessment/Plan: Improved to Hb of 10.4 after 1 unit packed list. Code(s): D62 - ACUTE POSTHEMORRHAGIC ANEMIA
[2016-04-27] MEDS: ASPIRIN COATED 81 MG TABLET.EC PO SCH (10:00)
[2016-04-27] MEDS: FUROSEMIDE 40 MG TABLET (FP) PO SCH (10:00)
[2016-04-27] MEDS: FERROUS SO4 325 MG TABLET (FP) PO SCH (10:00)
--- NOTE | 2016-04-27 10:19 | DS ---
Physical Examination Vital Signs: Vital Signs Temperature 98.0 F 04/27/16 06:00 Pulse Rate 60 04/27/16 06:00 Respiratory Rate 20 04/27/16 06:00 Blood Pressure 114/39 04/27/16 06:00 O2 Sat by Pulse Oximetry (%) 96 04/26/16 21:00 Constitutional: Yes: Calm, Pallor Cardiovascular: Yes: Regular Rate and Rhythm Respiratory: Yes: Dullness Gastrointestinal: Yes: Soft Musculoskeletal: Yes: Other (large hematoma left knee) Edema: LLE: 2+, RLE: 1+ Integumentary: Yes: Other (healing abrasion left knee.) Neurological: Yes: Alert, Oriented Labs: CBC, BMP 04/27/16 06:30 04/27/16 06:30 Discharge Summary Reason For Visit: INABILITY TO AMBULATE DUE TO KNEE Current Active Problems Acute blood loss anemia (Acute) Anemia (Acute) Contusion (Acute) Diabetes (Acute) Fall (Acute) Hematoma (Acute) Hypercholesterolemia (Acute) Inability to ambulate due to knee (Acute) LFT elevation (Acute) Leukocytosis (Acute) Procedures: Principal: Severe pain and large hematoma left knee due to mechanical fall at home and subsequent syncope in ER necessiatating Telemetry and Cardiology and Ortho MD sim. Other Procedures: F/U lab and EKG's and renal lab. Also need for Blood transfusion for blood loss with symptomatic side effects. Hospital Course: Slowly improved but delayed because of anemia and need for blood transfusion Condition: Improved - Instructions Diet, Activity, Other Instructions: no added salt or sweets. Please do BGM's at least twice a day. We are holding her Benicar because of lower BP readings due to blood loss after hematoma. Please do a cbc and basic profile each week she is there Referrals: Arya La MD [Primary Care Provider] - Ritesh López MD [Staff Physician] - Rio Mayo MD [Staff Physician] - Disposition: [facility] - Home Medications Comprehensive Discharge Medication List: Ambulatory Orders Aspirin [ASA -] 81 mg PO DAILY 01/27/15 Bimatoprost [Lumigan] 1 drop IO HS 01/27/15 Brimonidine Tartrate/Timolol [Combigan 0.2%-0.5% Eye Drops] 5 ml OP BID Dorzolamide HCl [Trusopt 2% -] 1 drop OD HS 01/27/15 Furosemide [Lasix -] 40 mg PO DAILY 01/27/15 Insulin Aspart [Novolog] 10 units SQ BID 01/27/15 Metoprolol Succinate [Toprol XL -] 50 mg PO HS 01/27/15 Potassium Chloride 10 meq PO DAILY 01/27/15 Rosuvastatin Calcium [Crestor] 40 mg PO HS 01/27/15 Ezetimibe [Zetia] 10 mg PO HS 04/24/16 Insulin (LOG) Aspart [NovoLOG -] 8 unit SQ ASDIR 04/24/16 Insulin Glargine,Hum.rec.anlog [Toujeo Solostar] 20 unit SQ HS 04/24/16 Acetaminophen [Tylenol .Regular Strength -] 650 mg PO Q6H PRN #0 tablet Ascorbic Acid [Vitamin C -] 500 mg PO DAILY tablet 04/27/16 Ferrous Sulfate [Feosol] 325 mg PO DAILY ud 04/27/16 Insulin Sliding Scale [Novolog Vial Sliding Scale -] 1 vial SQ BIDAC units 01/01
--- NOTE | 2016-04-27 11:59 | PN ---
Progress Note, Physician History of Present Illness: Left knee hematoma resolving, no chest pain or dyspnea, received 1 U PRBC. - Current Medication List Current Medications: Active Medications Acetaminophen (Tylenol -) 650 mg PO Q6H PRN PRN Reason: FEVER OR PAIN Last Admin: 04/27/16 09:58 Dose: 650 mg Ascorbic Acid (Vitamin C -) 500 mg PO DAILY [facility] Last Admin: 04/27/16 09:59 Dose: 500 mg Aspirin (Ecotrin -) 81 mg PO DAILY [facility] Last Admin: 04/27/16 10:00 Dose: 81 mg Brimonidine Tartrate (Alphagan 0.2% -) 1 drop OD BID [facility] Last Admin: 04/27/16 09:57 Dose: 1 drop Dorzolamide HCl (Trusopt 2%) 1 drop OU TID [facility] Last Admin: 04/27/16 05:42 Dose: 1 drop Ezetimibe (Zetia -) 10 mg PO HS [facility] Last Admin: 04/26/16 21:17 Dose: 10 mg Ferrous Sulfate (Feosol -) 325 mg PO DAILY [facility] Last Admin: 04/27/16 10:00 Dose: 325 mg Furosemide (Lasix -) 40 mg PO DAILY [facility] Last Admin: 04/26/16 11:00 Dose: 40 mg Insulin Aspart (Novolog Vial Sliding Scale -) 1 vial SQ BIDAC [facility] PRN Reason: Protocol Last Admin: 04/27/16 06:01 Dose: Not Given Insulin Detemir (Levemir Vial) 20 units SQ [facility] Last Admin: 04/26/16 21:14 Dose: 20 units Metoprolol Succinate (Toprol Xl -) 50 mg PO [facility] Last Admin: 04/26/16 21:17 Dose: 50 mg Lumigan Eye Drops Patient's Own Medication (Non- Formulary) 0 each OD DAILY [facility] Potassium Chloride (K-Dur -) 10 meq PO DAILY [facility] Last Admin: 04/27/16 09:59 Dose: 10 meq - Objective Vital Signs: Vital Signs Temperature 98.6 F 04/27/16 10:00 Pulse Rate 63 04/27/16 10:00 Respiratory Rate 20 04/27/16 10:00 Blood Pressure 99/49 04/27/16 10:00 O2 Sat by Pulse Oximetry (%) 100 04/27/16 09:00 Constitutional: Yes: No Distress, Calm Neck: Yes: Supple Cardiovascular: Yes: Regular Rate and Rhythm Respiratory: Yes: Regular, CTA Bilaterally Gastrointestinal: Yes: Normal Bowel Sounds, Soft Edema: Yes Edema: LLE: 2+, RLE: 1+ Labs: CBC, BMP 04/27/16 06:30 04/27/16 06:30 Assessment/Plan (1) CAD (coronary artery disease) Code(s): I25.10 - ATHSCL HEART DISEASE OF [place] CORONARY ARTERY W/O ANG PCTRS Qualifiers: Coronary Disease-Associated Artery/Lesion type: [place] artery [place] vs. transplanted heart: [place] heart Associated angina: without angina Qualified Code(s): I25.10 - Atherosclerotic heart disease of [place] coronary artery without angina pectoris (2) Diabetes Mellitus Code(s): E11.9 - TYPE 2 DIABETES MELLITUS WITHOUT COMPLICATIONS Qualifiers: Diabetes mellitus type: type 2 Diabetes mellitus complication status: without complication Diabetes mellitus termite treater helper insulin use: with termite treater helper use Qualified Code(s): E11.9 - Type 2 diabetes mellitus without complications; Z79.4 - detention (current) use of insulin (3) History of Fall Code(s): W19.XXXA - UNSPECIFIED FALL, INITIAL ENCOUNTER Qualifiers: Encounter type: initial encounter Qualified Code(s): W19.XXXA - Unspecified fall, initial encounter (4) Left knee, Thigh and calf Hematoma Code(s): T14.8 - OTHER INJURY OF UNSPECIFIED BODY REGION (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 Continue ASA 81 qd, Zetia 10 qhs, Lasix 40 qd, Toprol XL 50 qhs, 2. F/u Hgb post transfusion 3. Resume Benicar once renal fxn stabilizes 4. F/u in office after d/c from PT/rehab
[2016-04-27 14:21] VITALS: TEMP 98.2
[2016-04-27 15:16] VITALS: BP 117/53; PULSE 75
== END 2016-04-27 15:20 | DRG 605 ==
LOC: JER 08:31 → JERBED 10:36 → J4S 19:02
PROVIDERS: ADMIT Internal Medicine; ATTEND Internal Medicine
DX: S80.02XA Contusion of left knee, initial encounter (principal); D62 Acute posthemorrhagic anemia; E78.5 Hyperlipidemia, unspecified; E11.21 Type 2 diabetes mellitus with diabetic nephropathy; E03.9 Hypothyroidism, unspecified; I25.10 Atherosclerotic heart disease of native coronary artery without angina pectoris; E11.65 Type 2 diabetes mellitus with hyperglycemia; H40.9 Unspecified glaucoma; Z79.4 Long term (current) use of insulin; E11.22 Type 2 diabetes mellitus with diabetic chronic kidney disease; I12.9 Hypertensive chronic kidney disease with stage 1 through stage 4 chronic kidney disease, or unspecified chronic kidney disease; N18.9 Chronic kidney disease, unspecified; Z95.1 Presence of aortocoronary bypass graft; Z86.73 Personal history of transient ischemic attack (TIA), and cerebral infarction without residual deficits; R55 Syncope and collapse; W01.0XXA Fall on same level from slipping, tripping and stumbling without subsequent striking against object, initial encounter; Y93.89 Activity, other specified; Y92.098 Other place in other non-institutional residence as the place of occurrence of the external cause; Y99.8 Other external cause status
CPT/HCPCS: 36415; 36430; 70450-TC; 73552-TC-LT; 73562-TC-LT; 80048; 80053; 81003; 81015; 82550; 83605; 84484; 85025; 85027; 85651; 86850; 86900; 86901; 86922; 87040; 87086; 93005; 93010; 93970-TC; 97116-GP; 97161-GP; 99285-25; P9058

== ENCOUNTER 2016-07-16 15:48 | Inpatient (IN) | payer OTHER, BC ==
[2016-07-16 17:02] LABS: WHITE BLOOD COUNT 11.8 K/mm3 (4.0-10.0)
--- NOTE | 2016-07-16 17:10 | PDOC ---
History of Present Illness - General History Source: Patient, EMS, Family, Old Records Exam Limitations: No Limitations - History of Present Illness Initial Comments: 07/16/16 17:54 The patient is an 80 year old female, with a significant past medical history of hypertension, hyperlipidemia, diabetes, coronary artery disease s/p CABG, who presents to the emergency department via EMS s/p a syncopal episode just prior to presentation. The patients daughter is at the bedside. The patient was at the [facility] earlier this afternoon with her family. They just just eaten lunch when the patient turned to her daughter and stated that she felt like she was going to pass out. The patient subsequently syncopized. The patient was sitting down when she syncopized, the patients daughter states that she did not hit her head. She reports that when the patient syncopized, her head fell forward but she remained seated on the bench. The patients daughter reports that the syncopal episode lasted less than one minute. The patient reports that she remembers all events before and after she syncopized. EMS was initiated and the patient was brought to the ED for evaluation. The patient reports syncopal episodes in the past, most recently approximately one year ago. The patient does reports increasing bilateral lower extremity edema over the past couple days. The patient denies any recent fever, chills, nausea, vomiting, diarrhea or abdominal pain. Allergies: None reported. Past Surgical History: CABG. Social History: Non smoker. Denies alcohol or drug use. PCP: Dr. La <Marilyn Kitchen - Last Filed: 07/16/16 19:10> <Tamica Rodriguez - Last Filed: 07/16/16 19:13> - General Chief Complaint: Syncope/Near Syncope Stated Complaint: Syncope/Near Syncope Time Seen by Provider: 07/16/16 16:06 Past History <Marilyn Kitchen - Last Filed: 07/16/16 19:10> - Past Medical History Cardiac Disorders: Yes (uterine) Diabetes: Yes HTN: Yes Hypercholesterolemia: Yes Thyroid Disease: Yes - Surgical History Cardiac Surgery: Yes - Psycho/Social/Smoking Cessation Hx Anxiety: No Suicidal Ideation: No Smoking History: Never smoked Number of Cigarettes Smoked Daily: 0 Hx Alcohol Use: No Drug/Substance Use Hx: No Substance Use Type: None <Tamica Rodriguez - Last Filed: 07/16/16 19:13> - Past Medical History Allergies/Adverse Reactions: Allergies Allergy/AdvReac Type Severity Reaction Status Date / Time No Known Allergies Allergy Verified 07/16/16 16:51 Home Medications: Ambulatory Orders Aspirin [ASA -] 81 mg PO DAILY 01/27/15 Bimatoprost [Lumigan] 1 drop IO HS 01/27/15 Brimonidine Tartrate/Timolol [Combigan 0.2%-0.5% Eye Drops] 5 ml OP BID Dorzolamide HCl [Trusopt 2% -] 1 drop OD HS 01/27/15 Furosemide [Lasix -] 40 mg PO DAILY 01/27/15 Insulin Aspart [Novolog] 10 units SQ BID 01/27/15 Metoprolol Succinate [Toprol XL -] 50 mg PO HS 01/27/15 Potassium Chloride 10 meq PO DAILY 01/27/15 Rosuvastatin Calcium [Crestor] 40 mg PO HS 01/27/15 Ezetimibe [Zetia] 10 mg PO HS 04/24/16 Insulin (LOG) Aspart [NovoLOG -] 8 unit SQ ASDIR 04/24/16 Insulin Glargine,Hum.rec.anlog [Toujeo Solostar] 20 unit SQ HS 04/24/16 Acetaminophen [Tylenol .Regular Strength -] 650 mg PO Q6H PRN #0 tablet Ascorbic Acid [Vitamin C -] 500 mg PO DAILY tablet 04/27/16 Ferrous Sulfate [Feosol] 325 mg PO DAILY ud 04/27/16 Insulin Sliding Scale [Novolog Vial Sliding Scale -] 1 vial SQ BIDAC units 01/01 Review of Systems - Review of Systems Able to Perform ROS?: Yes Comments:: 07/16/16 17:52 GENERAL/CONSTITUTIONAL: No fever or chills. No weakness. HEAD, EYES, EARS, NOSE AND THROAT: No change in vision. No ear pain or discharge. No sore throat. CARDIOVASCULAR: No chest pain or shortness of breath. RESPIRATORY: No cough, wheezing, or hemoptysis. GASTROINTESTINAL: No nausea, vomiting, diarrhea or constipation. GENITOURINARY: No dysuria, frequency, or change in urination. MUSCULOSKELETAL: No joint or muscle swelling or pain. No neck or back pain. EXTREMITY: +Bilateral lower extremity edema. SKIN: No rash. NEUROLOGIC: +Syncope. No headache, vertigo or change in strength/sensation. ENDOCRINE: No increased thirst. No abnormal weight change. HEMATOLOGIC/LYMPHATIC: No anemia, easy bleeding, or history of blood clots. ALLERGIC/IMMUNOLOGIC: No hives or skin allergy. <Marilyn Kitchen - Last Filed: 07/16/16 19:10> *Physical Exam - Vital Signs Last Vital Signs Temp Pulse Resp BP Pulse Ox 98.3 F 78 16 156/65 100 07/16/16 16:08 07/16/16 16:08 07/16/16 16:08 07/16/16 16:08 07/16/16 16:08 <Marilyn Kitchen - Last Filed: 07/16/16 19:10> - Vital Signs Last Vital Signs Temp Pulse Resp BP Pulse Ox 98.3 F 78 16 156/65 100 07/16/16 16:08 07/16/16 16:08 07/16/16 16:08 07/16/16 16:08 07/16/16 16:08 - Physical Exam Comments: GENERAL: Awake, alert, and fully oriented, in no acute distress HEAD: No signs of trauma EYES: PERRLA, EOMI, sclera anicteric, conjunctiva clear ENT: Auricles normal inspection, hearing grossly normal, nares patent, oropharynx clear without exudates. Moist mucosa NECK: Normal ROM, supple, no lymphadenopathy, JVD, or masses LUNGS: Breath sounds equal, clear to auscultation bilaterally. No wheezes, and no crackles HEART: Regular rate and rhythm, normal S1 and S2, no murmurs, rubs or gallops ABDOMEN: Soft, nontender, normoactive bowel sounds. No guarding, no rebound. No masses EXTREMITIES: 2+ edema BLE to mid-romo. Normal range of motion, no edema. No clubbing or cyanosis. No cords, erythema, or tenderness NEUROLOGICAL: Cranial nerves II through XII grossly intact. Normal speech, normal gait SKIN: Warm, Dry, normal turgor, no rashes or lesions noted. <Tamica Rodriguez - Last Filed: 07/16/16 19:13> ED Treatment Course - LABORATORY CBC & Chemistry Diagram: 07/16/16 16:31 07/16/16 16:31 - ADDITIONAL ORDERS Additional order review: Laboratory Results 07/16/16 16:31 Sodium Cancelled Potassium Cancelled Chloride Cancelled Carbon Dioxide Cancelled Anion Gap Cancelled BUN Cancelled Creatinine Cancelled Creat Clearance w eGFR Cancelled Random Glucose Cancelled Calcium Cancelled Total Bilirubin Cancelled AST Cancelled ALT Cancelled Alkaline Phosphatase Cancelled Creatine Kinase Cancelled Troponin I Cancelled Total Protein Cancelled Albumin Cancelled 07/16/16 16:31 RBC 4.20 D MCV 89.9 MCHC 32.0 RDW 15.1 MPV 10.9 D Neutrophils % 87.8 H Lymphocytes % 6.0 L D Monocytes % 4.9 Eosinophils % 0.7 Basophils % 0.6 <Marilyn Kitchen - Last Filed: 07/16/16 19:10> - LABORATORY CBC & Chemistry Diagram: 07/16/16 16:31 07/16/16 16:31 - ADDITIONAL ORDERS Additional order review: Laboratory Results 07/16/16 16:31 Sodium Cancelled Potassium Cancelled Chloride Cancelled Carbon Dioxide Cancelled Anion Gap Cancelled BUN Cancelled Creatinine Cancelled Creat Clearance w eGFR Cancelled Random Glucose Cancelled Calcium Cancelled Total Bilirubin Cancelled AST Cancelled ALT Cancelled Alkaline Phosphatase Cancelled Creatine Kinase Cancelled Troponin I Cancelled Total Protein Cancelled Albumin Cancelled - RADIOLOGY Radiology Studies Ordered: Category Date Time Status CHEST X-RAY PORTABLE* [RAD] Stat Radiology 07/16/16 16:28 Ordered <Tamica Rodriguez - Last Filed: 07/16/16 19:13> Medical Decision Making - Medical Decision Making 07/16/16 19:10 EXAM: RAD/CHEST X-RAY PORTABLE Reviewed By: Dr. Tomi Patel IMPRESSION: No acute disease. <Marilyn Kitchen - Last Filed: 07/16/16 19:10> *DC/Admit/Observation/Transfer - Attestations Scribe Attestion: 07/16/16 17:32 Documentation prepared by Marilyn Kitchen, acting as medical review coordinator for Tamica Rodriguez MD. <Marilyn Kitchen - Last Filed: 07/16/16 19:10> - Discharge Dispostion Admit: Yes <Tamica Rodriguez - Last Filed: 07/16/16 19:13> Diagnosis at time of Disposition: Syncope and collapse - Discharge Dispostion Condition at time of disposition: Stable - Referrals Referrals: Arya La MD [Primary Care Provider] -
[2016-07-16 17:21] LABS: BASOPHIL 0.6 % (0-2.0); EOSINOPHIL 0.7 % (0-4.5); MCH 28.7 pg (25.7-33.7); MEAN CELL VOLUME 89.9 fl (80-96); MEAN PLT VOLUME 10.9 fl (7.5-11.1); NEUTROPHILS 87.8 % (42.8-82.8); PLATELET COUNT 196 K/MM3 (134-434); RDW 15.1 % (11.6-15.6)
[2016-07-16 17:39] LABS: INR 0.92 (0.82-1.09); PROTHROMBIN TIME (PATIENT) 10.1 SEC (9.98-11.88)
[2016-07-16 18:10] LABS: ALBUMIN 3.6 g/dl (3.4-5.0); BILIRUBIN,TOTAL 0.3 mg/dL (0.2-1.0); CALCIUM 8.9 mg/dL (8.5-10.1); COCKROFT - GAULT 28.9; TOT PROT 6.6 g/dl (6.4-8.2)
[2016-07-16 18:13] LABS: TROPONIN I < 0.02 ng/ml (0.00-0.05)
[2016-07-16] MEDS ORDERED: ACETAMINOPHEN 325 MG TABLET (FP) PO PRN (20:00)
--- NOTE | 2016-07-16 20:02 | HP ---
Admitting History and Physical - Primary Care Physician PCP: Arya La - Admission Chief Complaint: I passed out [place] [employer] History of Present Illness: Patient with a past hx of DM with nephropathy, Carotid Artery Endarterectomy, Hypertension, Renal Failure, CVA, previous syncope, Hyperlipidemia and CABG comes to ER via ambulance after having a witnessed syncopal episode after having lunch while sitting down at the [facility]. She had no warning and no prior headache,SOB,diaphoresis or chest pain. She was out for less than a minute and didn't fall or strike her head. She was feeling well prior to the event. History Source: Patient Limitations to Obtaining History: No Limitations - Past Medical History ROUTEMAN: Yes: CVA, Syncope Cardiovascular: Yes: CAD, HTN, Hyperlipdemia Renal/: Yes: Renal Inusuff Psych: Yes: Anxiety Musculoskeletal: Yes: Osteoarthritis Endocrine: Yes: Diabetes Mellitus, Hypothyroidism - Past Surgical History Past Surgical History: Yes: CABG, Carotid Endarterectomy, Hysterectomy, Oopherectomy - Smoking History Smoking history: Never smoked Have you smoked in the past 12 months: No Aproximately how many cigarettes per day: 0 - Alcohol/Substance Use Hx Alcohol Use: No History of Substance Use: reports: None - Social History Usual Living Arrangement: Yes: With Spouse ADL: Independent History of Recent Travel: No Home Medications - Allergies Allergies/Adverse Reactions: Allergies Allergy/AdvReac Type Severity Reaction Status Date / Time No Known Allergies Allergy Verified 07/16/16 16:51 - Home Medications Home Medications: Ambulatory Orders Aspirin [ASA -] 81 mg PO DAILY 01/27/15 Bimatoprost [Lumigan] 1 drop IO HS 01/27/15 Brimonidine Tartrate/Timolol [Combigan 0.2%-0.5% Eye Drops] 5 ml OP BID Dorzolamide HCl [Trusopt 2% -] 1 drop OD HS 01/27/15 Furosemide [Lasix -] 40 mg PO DAILY 01/27/15 Insulin Aspart [Novolog] 10 units SQ BID 01/27/15 Metoprolol Succinate [Toprol XL -] 50 mg PO HS 01/27/15 Potassium Chloride 10 meq PO DAILY 01/27/15 Rosuvastatin Calcium [Crestor] 40 mg PO HS 01/27/15 Ezetimibe [Zetia] 10 mg PO HS 04/24/16 Insulin (LOG) Aspart [NovoLOG -] 8 unit SQ ASDIR 04/24/16 Insulin Glargine,Hum.rec.anlog [Toujeo Solostar] 20 unit SQ HS 04/24/16 Acetaminophen [Tylenol .Regular Strength -] 650 mg PO Q6H PRN #0 tablet Ascorbic Acid [Vitamin C -] 500 mg PO DAILY tablet 04/27/16 Ferrous Sulfate [Feosol] 325 mg PO DAILY ud 04/27/16 Insulin Sliding Scale [Novolog Vial Sliding Scale -] 1 vial SQ BIDAC units 01/01 Family Disease History - Family Disease History Family Disease History: [place]: Sister (Breast CA), Other: Father (CAD) Review of Systems - Review of Systems Constitutional: denies: Chills, Night Sweats Eyes: reports: Other (hx: Glaucoma on Rx) HENT: denies: Difficult Swallowing Cardiovascular: denies: Chest Pain Respiratory: reports: SOB on Exertion Gastrointestinal: reports: No Symptoms Genitourinary: denies: Burning Musculoskeletal: reports: Joint Pain Integumentary: reports: No Symptoms Neurological: reports: Syncope Endocrine: denies: Excessive Sweating Physical Examination Vital Signs: Vital Signs Temperature 98.3 F 07/16/16 16:08 Pulse Rate 78 07/16/16 16:08 Respiratory Rate 16 07/16/16 16:08 Blood Pressure 156/65 07/16/16 16:08 O2 Sat by Pulse Oximetry (%) 99 07/16/16 17:26 Constitutional: Yes: No Distress, Calm Neck: Yes: Other (Right endarterectomy scar) Cardiovascular: Yes: Regular Rate and Rhythm Respiratory: Yes: Diminished. No: Rales Gastrointestinal: Yes: Soft Edema: LLE: 3+, RLE: 3+ Peripheral Pulses: Left Doralis Pedis: 0, Right Dorsalis Pedis: 0 Neurological: Yes: Alert, Oriented Labs: CBC, BMP 07/16/16 16:31 07/16/16 17:25 Imaging - Results X-ray: Report Reviewed EKG: Image Reviewed Problem List - Problems (1) Syncope and collapse Assessment/Plan: Witnessed without any focal weakness. Sitting and became responsive in less than a minute Code(s): R55 - SYNCOPE AND COLLAPSE (2) CAD (coronary artery disease) Assessment/Plan: No recent Chest pain; EKG RBBB; no change from previous EKG Code(s): I25.10 - ATHSCL HEART DISEASE OF [place] CORONARY ARTERY W/O ANG PCTRS Qualifiers: Coronary Disease-Associated Artery/Lesion type: [place] artery [place] vs. transplanted heart: [place] heart Associated angina: without angina Qualified Code(s): I25.10 - Atherosclerotic heart disease of [place] coronary artery without angina pectoris (3) Chronic kidney disease Assessment/Plan: Creatinine 2; followed by Renal MD in [facility] Code(s): N18.9 - CHRONIC KIDNEY DISEASE, UNSPECIFIED (4) Diabetes Assessment/Plan: CMP glucose noted at 213. BGM's ordered. Code(s): E11.9 - TYPE 2 DIABETES MELLITUS WITHOUT COMPLICATIONS Qualifiers: Diabetes mellitus type: type 2 Diabetes mellitus detention insulin use : with detention use Qualified Code(s): - (5) HTN (hypertension) Assessment/Plan: On Rx; will follow Code(s): I10 - ESSENTIAL (PRIMARY) HYPERTENSION Qualifiers: Hypertension type: essential hypertension Qualified Code(s): I10 - Essential (primary) hypertension (6) Hypercholesterolemia Assessment/Plan: On Rx Code(s): E78.0 - PURE HYPERCHOLESTEROLEMIA * DO NOT USE *
[2016-07-16] MEDS ORDERED: INSULIN (NOVOLOG) ASPART 100 UNITS/ML 10ML VIAL ONE (20:38)
[2016-07-16] MEDS ORDERED: INSULIN DETEMIR 100 UNITS/ML MDV SQ SCH (22:00)
[2016-07-16] MEDS ORDERED: ROSUVASTATIN CA 20 MG TABLET (FP) PO SCH (22:00)
[2016-07-16] MEDS: HEPARIN NA (PORCINE) 5,000 UNITS/ML 1ML VIAL SQ SCH (22:16)
[2016-07-16] MEDS: TIMOLOL 0.5% OPHTHALMIC SOL 5 ML BOTTLE OU SCH (22:21)
[2016-07-16] MEDS: DORZOLAMIDE 2% HCL OPHTHALMIC SOLUTION 10 ML BOTTLE OD SCH (22:27)
[2016-07-16] MEDS: BRIMONIDINE TARTRATE 0.2% OPHTHALMIC 5 ML BOTTLE OU SCH (22:27)
[2016-07-16 23:39] VITALS: BMI 28.2
[2016-07-17] MEDS: DORZOLAMIDE 2% HCL OPHTHALMIC SOLUTION 10 ML BOTTLE OD SCH ×2 (06:10→13:31)
[2016-07-17] MEDS ORDERED: INSULIN (NOVOLOG) ASPART 100 UNITS/ML 10ML VIAL SQ SCH ×2 (07:00→11:00)
[2016-07-17 07:28] LABS: BASOPHIL 0.6 % (0-2.0); EOSINOPHIL 1.9 % (0-4.5); MCH 29.2 pg (25.7-33.7); MEAN CELL VOLUME 88.6 fl (80-96); MEAN PLT VOLUME 10.7 fl (7.5-11.1); PLATELET COUNT 181 K/MM3 (134-434); RDW 14.7 % (11.6-15.6); WHITE BLOOD COUNT 8.4 K/mm3 (4.0-10.0)
[2016-07-17 07:48] LABS: ALBUMIN 3.3 g/dl (3.4-5.0); BILIRUBIN,TOTAL 0.4 mg/dL (0.2-1.0); CALCIUM 8.8 mg/dL (8.5-10.1); COCKROFT - GAULT 29.342; CREATININE 1.8 mg/dL (0.55-1.02); TOT PROT 6.1 g/dl (6.4-8.2)
[2016-07-17 07:50] LABS: TROPONIN I 0.02 ng/ml (0.00-0.05)
[2016-07-17] MEDS: TIMOLOL 0.5% OPHTHALMIC SOL 5 ML BOTTLE OU SCH (09:40)
--- NOTE | 2016-07-17 09:40 | PN ---
Progress Note (short form) - Note Progress Note: Chief Complaint: Events noted, notes reviewed, recurrent syncope with a brief prodrome of lightheadedness, denied any palpitations, denied any chest pain or dyspnea History of Present Illness: Seen and examined on telemetry. Full consult dictated Medications: Current Medications Acetaminophen (Tylenol -) 650 mg PO Q6H PRN PRN Reason: FEVER OR PAIN Aspirin (Ecotrin -) 81 mg PO DAILY [facility] Last Admin: 07/17/16 09:39 Dose: 81 mg Brimonidine Tartrate (Alphagan 0.2% -) 1 drop OU BID [facility] Last Admin: 07/17/16 09:41 Dose: 1 drop Dorzolamide HCl (Trusopt 2%) 1 drop OD TID [facility] Last Admin: 07/17/16 06:10 Dose: 1 drop Ezetimibe (Zetia -) 10 mg PO DAILY [facility] Last Admin: 07/17/16 09:39 Dose: 10 mg Furosemide (Lasix -) 40 mg PO DAILY [facility] Last Admin: 07/17/16 09:39 Dose: 40 mg Heparin Sodium (Porcine) (Heparin -) 5,000 unit SQ BID [facility] Last Admin: 07/17/16 09:42 Dose: 5,000 unit Insulin Aspart (Novolog Vial) 10 units SQ BIDAC [facility] Last Admin: 07/17/16 07:40 Dose: 10 units Insulin Aspart (Novolog Vial) 8 units SQ DAILY@1100 [facility] Insulin Detemir (Levemir Vial) 20 units SQ HS [facility] Last Admin: 07/16/16 22:18 Dose: 20 units Metoprolol Succinate (Toprol Xl -) 50 mg PO DAILY [facility] Last Admin: 07/17/16 09:42 Dose: 50 mg Potassium Chloride (K-Dur -) 10 meq PO DAILY [facility] Last Admin: 07/17/16 09:39 Dose: 10 meq Rosuvastatin Calcium (Crestor -) 40 mg PO HS [facility] Last Admin: 07/16/16 22:18 Dose: 40 mg Timolol Maleate (Timoptic 0.5%) 1 drop OU BID [facility] Last Admin: 07/17/16 09:40 Dose: 1 drop Valsartan (Diovan -) 320 mg PO DAILY [facility] Last Admin: 07/17/16 09:39 Dose: 320 mg Review of Systems - Review of Systems Cardiovascular: As noted above Respiratory: denies: denies: Cough or Sputum Production Gastrointestinal: denies: Nausea, Vomiting, Diarrhea, Constipation or Abdominal Discomfort Musculoskeletal: No Symptoms Reported Endocrine: No Symptoms Reported Vital Signs: Last Vital Signs Temp Pulse Resp BP Pulse Ox 98.3 F 63 20 158/61 100 07/17/16 05:45 07/17/16 05:45 07/17/16 05:45 07/17/16 05:45 07/16/16 21:25 Intake & Output 07/14/16 07/15/16 07/16/16 07/17/16 23:59 23:59 23:59 23:59 Intake Total 120 Balance 120 Weight 169 lb 8 oz 167 lb 3.2 oz Neck: Supple Negative JVD No Bruit Respiratory: Clear to A&P Bilaterally Cardiovascular: S1 S2 Regular Rate and Rhythm Grade 2/6 LUIZ Gastrointestinal: Soft Benign Normal Bowel Sounds Ext: 1-2+ Edema Labs: CBC, BMP 07/17/16 05:35 07/17/16 05:35 Hepatic Panel Total Bilirubin 0.4 mg/dL (0.2-1.0) D 07/17/16 05:35 AST 22 U/L (15-37) 07/17/16 05:35 ALT 19 U/L (12-78) 07/17/16 05:35 Alkaline Phosphatase 85 U/L (45-117) 07/17/16 05:35 Albumin 3.3 g/dl (3.4-5.0) L 07/17/16 05:35 Troponin, BNP 07/16/16 07/16/16 07/17/16 16:31 17:25 05:35 Troponin I Cancelled < 0.02 0.02 Assessment/Plan ASSESSMENT: 1. Recurrent syncope, differential includes neuro-cardiogenic syncope vs. arrhythmo-genic syncope (bradycardia, unlikely to be tachycardia related) 2. CAD post CABG, angina pectoris 3. 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 HTN 5. DM 6. Hypercholesterolemia 7. History of CVA 8. Carotid stenosis post carotid end-arterectomy 9. Hypothyroidism 10. CKD PLAN: 1. Continue Toprol XL 2. Continue Benicar or equivalent therapy 3. Continue ASA 4. Continue Crestor and Zetia 5. Continue PO Lasix 6. Recommend tilt table testing as outpatient 7. Recommend EP study to evaluate sinus node recovery time and AV conduction, if negative plan to proceed with implantable loop recorder, discussed in detail with the patient and her daughter, to be performed as outpatient Moisés Hanna MD
[2016-07-17] MEDS: BRIMONIDINE TARTRATE 0.2% OPHTHALMIC 5 ML BOTTLE OU SCH (09:41)
[2016-07-17] MEDS: HEPARIN NA (PORCINE) 5,000 UNITS/ML 1ML VIAL SQ SCH (09:42)
[2016-07-17] MEDS ORDERED: ASPIRIN COATED 81 MG TABLET.EC PO SCH (10:00)
[2016-07-17] MEDS ORDERED: VALSARTAN 160 MG TABLET (UD) PO SCH (10:00)
[2016-07-17] MEDS ORDERED: METOPROLOL SUCCINATE 50 MG TAB.SR.24H (FP) PO SCH (10:00)
[2016-07-17] MEDS ORDERED: FUROSEMIDE 20 MG TABLET (FP) PO SCH ×2 (10:00)
[2016-07-17] MEDS ORDERED: POTASSIUM CHLORIDE TABS 10 MEQ TABLET.ER (FP) PO SCH (10:00)
[2016-07-17] MEDS ORDERED: EZETIMIBE 10 MG TABLET (FP) PO SCH (10:00)
[2016-07-17 11:12] VITALS: BP 154/63; PULSE 72; TEMP 98
--- NOTE | 2016-07-17 14:58 | DS ---
Physical Examination Vital Signs: Vital Signs Temperature 98 F 07/17/16 10:00 Pulse Rate 72 07/17/16 10:00 Respiratory Rate 18 07/17/16 10:00 Blood Pressure 154/63 07/17/16 10:00 O2 Sat by Pulse Oximetry (%) 100 07/17/16 09:00 Constitutional: Yes: Calm Neck: Yes: Supple Cardiovascular: Yes: Regular Rate and Rhythm Respiratory: Yes: Diminished Gastrointestinal: Yes: Soft Edema: LLE: 1+, RLE: 1+ Neurological: Yes: Alert, Oriented. No: Weakness Labs: CBC, BMP 07/17/16 05:35 07/17/16 05:35 Discharge Summary Reason For Visit: SYNCOPE AND COLLAPSE Acute syncope Diabetes Mellitus uncontrolled acute ASHD with CABG Carotid Endarterectomy Hypertension acute Hyperlipidemia Acute Diabetic Nephropathy Procedures: Principal: Cardiac Monitoring. Cat Scan Brain Other Procedures: BGM's; Cardiology Consultation Hospital Course: Improved rapidly; to follow at [facility] for Tilt Table and EP studies Condition: Stable - Instructions Diet, Activity, Other Instructions: No added salt or sugars. Followup with Dr. Hanna Re; testing at [facility] for Tilt table and EP studies for possible pacemaker evaluation. Dr. La for regular office visit. Referrals: Moisés Hanna MD [Staff Physician] - Arya La MD [Primary Care Provider] - Disposition: HOME - Home Medications Comprehensive Discharge Medication List: Ambulatory Orders Aspirin [ASA -] 81 mg PO DAILY 01/27/15 Bimatoprost [Lumigan] 1 drop IO HS 01/27/15 Dorzolamide HCl [Trusopt 2% -] 1 drop OD HS 01/27/15 Furosemide [Lasix -] 40 mg PO DAILY 01/27/15 Insulin Aspart [Novolog] 10 units SQ BID 01/27/15 Metoprolol Succinate [Toprol XL -] 50 mg PO HS 01/27/15 Potassium Chloride 10 meq PO DAILY 01/27/15 Rosuvastatin Calcium [Crestor] 40 mg PO HS 01/27/15 Ezetimibe [Zetia] 10 mg PO HS 04/24/16 Insulin (LOG) Aspart [NovoLOG -] 8 unit SQ ASDIR 04/24/16 Insulin Glargine,Hum.rec.anlog [Toujeo Solostar] 20 unit SQ HS 04/24/16 Acetaminophen [Tylenol .Regular Strength -] 650 mg PO Q6H PRN #0 tablet Brimonidine Tartrate [Alphagan 0.2% -] 1 drop OU BID bottle 07/17/16 Timolol 0.5% [Timoptic 0.5%] 1 drop OU BID bottle 07/17/16
--- NOTE | 2016-07-17 16:44 | CONS ---
DATE OF CONSULTATION: 07/17/2016 REQUESTING PHYSICIAN: Arya La M.D. CHIEF COMPLAINT: Evaluation of syncopal episode. HISTORY OF PRESENT ILLNESS: An 80-year-old female known to our service with known history of coronary artery disease status post coronary artery bypass grafting, angina pectoris, diastolic left ventricular dysfunction with chronic class 0 to 1 [place] [employer] classification left ventricular failure, hypertensive cardiovascular disease, diabetes mellitus, hypercholesterolemia, cerebrovascular disease with no significant residual deficit, carotid stenosis, post carotid endarterectomy, chronic kidney disease with prior history of syncopal episodes, was in usual state of health until yesterday when she had sudden onset of loss of consciousness [place]. Patient stated that she had sudden onset of dizziness and subsequently she lost consciousness, but she did not report any trauma. Patient did not report any preceding palpitations. Patient continues to report dyspnea with mild to moderate physical exertion and persistence of bilateral lower extremity edema. Patient denies any orthopnea, paroxysmal nocturnal dyspnea. Patient denies any chest discomfort. Patient denies any fatigue or tiredness. PAST MEDICAL HISTORY: Coronary artery disease status post coronary artery bypass grafting, angina pectoris, diastolic left ventricular dysfunction with class 0 to 1 [place] [employer] classification left ventricular failure, hypertensive cardiovascular disease, diabetes mellitus, hypercholesterolemia, cerebrovascular disease with no significant residual deficit, carotid stenosis post carotid endarterectomy, chronic kidney disease. SOCIAL HISTORY: Denies smoking. FAMILY HISTORY: Positive coronary artery disease. ALLERGIES: None reported. MEDICAL THERAPY: Currently include Ecotrin 81 mg once a day, eyedrops as prescribed, Zetia 10 mg once a day, Crestor 40 mg once a day, Lasix 40 mg once a day, insulin as prescribed, Toprol XL 50 mg once a day, K-Dur 10 mEq once a day, Benicar 40 mg once daily. REVIEW OF SYSTEMS: Head and neck: Denies headache, photophobia, blurring of vision. Respiratory: No cough, sputum production. Cardiovascular: As noted above. Gastrointestinal: Denies nausea, vomiting, diarrhea, abdominal discomfort. Genitourinary: No symptoms reported. PHYSICAL EXAMINATION: Vital signs: Blood pressure 158/61 mmHg, pulse rate 63 beats per minute. Head/Neck: Pupils equal, reactive to light and accommodation. Extraocular muscles intact. Anicteric sclerae. Negative JVD. No bruit appreciated. Chest: Clear to auscultation, percussion. Cardiovascular: S1, S2. Regularly. Grade 2/6 systolic ejection murmur. No clicks or gallops. Abdomen: Soft, benign. Normoactive bowel sounds. Extremity: 1 to 2plus bilateral edema. Decreased distal pulses. EKG: Reveals sinus rhythm with nonspecific T wave abnormality. CBC revealed white cell count 8.4, hemoglobin 12.4, platelets 181. Basic metabolic panel revealed sodium 141, potassium 3.4, BUN 43, creatinine 1.8, glucose 98, troponin less than 0.02. ASSESSMENT: 1. Recurrent syncope, differential includes neurocardiogenic syncope versus arrhythmogenic syncope, bradycardia, unlikely to be tachycardia related. 2. Coronary artery disease post coronary artery bypass grafting, angina pectoris. 3. Diastolic left ventricular dysfunction with class 0 to 1 [place] [employer] classification left ventricular failure. 4. Hypertensive cardiovascular disease. 5. Diabetes mellitus. 6. Hypercholesterolemia. 7. History of cerebrovascular disease. 8. Carotid stenosis post carotid endarterectomy. 9. Hypothyroidism. 10. Chronic kidney disease. PLAN: 1. Patient was advised to continue Toprol XL therapy. 2. Continuation of Benicar or equivalent therapy. 3. Continuation of aspirin. 4. Continuation of Crestor and Zetia. 5. Continuation of all Lasix therapy. 6. Recommend tilt table testing as outpatient. 7. Recommend electrophysiology study to evaluate sinus node recovery time and AV conduction; if negative, plan to proceed with implantable loop recorder discussed in detail with the patient and her daughter, to be performed as outpatient. Thank you for the kind referral. CARLA ROBLERO M.D. [id number]
--- NOTE | 2016-07-17 22:55 | EKG ---
Test Reason : Blood Pressure : / mmHG Vent. Rate : 064 BPM Atrial Rate : 064 BPM P-R Int : 210 ms QRS Dur : 154 ms QT Int : 482 ms P-R-T Axes : 061 078 000 degrees QTc Int : 497 ms SINUS RHYTHM WITH 1ST DEGREE A-V BLOCK RIGHT BUNDLE BRANCH BLOCK T WAVE ABNORMALITY, CONSIDER INFERIOR ISCHEMIA ABNORMAL ECG WHEN COMPARED WITH ECG OF 16-JUL-2016 16:13, NO SIGNIFICANT CHANGE WAS FOUND Confirmed by YVONNE CARRASCO MD ([id number]) on 07/17/2016 10:54:39 PM Referred By: JESSEE SPARKS Confirmed By:YVONNE CARRASCO MD
--- NOTE | 2016-07-17 22:58 | EKG ---
Test Reason : Blood Pressure : / mmHG Vent. Rate : 065 BPM Atrial Rate : 065 BPM P-R Int : 198 ms QRS Dur : 144 ms QT Int : 490 ms P-R-T Axes : 048 076 -05 degrees QTc Int : 509 ms NORMAL SINUS RHYTHM RIGHT BUNDLE BRANCH BLOCK T WAVE ABNORMALITY, CONSIDER INFERIOR ISCHEMIA ABNORMAL ECG WHEN COMPARED WITH ECG OF 24-APR-2016 16:18, NO SIGNIFICANT CHANGE WAS FOUND Confirmed by DANILO BARLOW, YVONNE ([id number]) on 07/17/2016 10:57:59 PM Referred By: Confirmed By:YVONNE CARRASCO MD
== END 2016-07-17 14:49 | disposition home or self-care (01) | DRG 312 ==
LOC: JER 15:48 → JERBED 19:33 → J4W 21:20
PROVIDERS: ADMIT Internal Medicine; ATTEND Internal Medicine
DX: R55 Syncope and collapse (principal); Z95.1 Presence of aortocoronary bypass graft; E11.65 Type 2 diabetes mellitus with hyperglycemia; E11.21 Type 2 diabetes mellitus with diabetic nephropathy; E03.9 Hypothyroidism, unspecified; I25.119 Atherosclerotic heart disease of native coronary artery with unspecified angina pectoris; I12.9 Hypertensive chronic kidney disease with stage 1 through stage 4 chronic kidney disease, or unspecified chronic kidney disease; E11.22 Type 2 diabetes mellitus with diabetic chronic kidney disease; N18.9 Chronic kidney disease, unspecified; Z86.73 Personal history of transient ischemic attack (TIA), and cerebral infarction without residual deficits
CPT/HCPCS: 36415; 70450-TC; 71010-TC; 80053; 82550; 82553; 84484; 85025; 85610; 93005; 93010; 99284-25; J1644

== ENCOUNTER 2018-11-04 12:30 | Emergency (ER) | payer OTHER, BC ==
[2018-11-04 12:59] VITALS: BP 164/61; PULSE 64; TEMP 97.7; BMI 25.8
--- NOTE | 2018-11-04 13:39 | PDOC ---
History of Present Illness - General Chief Complaint: Sweating Stated Complaint: SENT BY PCP Time Seen by Provider: 11/04/18 13:14 History Source: Patient - History of Present Illness Timing/Duration: resolved prior to arrival Associated Symptoms: denies: cough, fever/chills, nausea/vomiting, shortness of breath, syncope Past History - Past Medical History Allergies/Adverse Reactions: Allergies Allergy/AdvReac Type Severity Reaction Status Date / Time No Known Allergies Allergy Verified 10/30/17 16:56 Home Medications: Ambulatory Orders Aspirin [ASA -] 81 mg PO DAILY 01/27/15 Bimatoprost [Lumigan] 1 drop IO HS 01/27/15 Dorzolamide HCl [Trusopt 2% -] 1 drop OD HS 01/27/15 Furosemide [Lasix -] 80 mg PO DAILY 01/27/15 Insulin Aspart [Novolog] 12 units SQ TID 01/27/15 Metoprolol Succinate [Toprol XL -] 50 mg PO HS 01/27/15 Potassium Chloride 10 meq PO DAILY 01/27/15 Rosuvastatin Calcium [Crestor] 40 mg PO HS 01/27/15 Ezetimibe [Zetia] 10 mg PO HS 04/24/16 Insulin Glargine,Hum.rec.anlog [Toujeo Solostar] 22 unit SQ HS 04/24/16 Amlodipine Besylate 2.5 mg PO DAILY 10/30/17 Bimatoprost [Lumigan] 1 drop IO DAILY 10/30/17 Febuxostat [Uloric -] 40 mg PO DAILY 10/30/17 Ubidecarenone [Co Q-10] 100 mg PO DAILY 10/30/17 Cancer: Yes (Uterine) Cardiac Disorders: (Yes,CAD) COPD: No Diabetes: Yes (; with neuropathy) HTN: Yes Hypercholesterolemia: Yes Thyroid Disease: Yes - Surgical History Appendectomy: Yes Cardiac Surgery: (Yes,CABG x 1 vessel, stent) - Immunization History Immunization Up to Date: Yes - Suicide/Smoking/Psychosocial Hx Smoking History: Never smoked Have you smoked in the past 12 months: No Number of Cigarettes Smoked Daily: 0 Hx Alcohol Use: No Drug/Substance Use Hx: No Substance Use Type: None Review of Systems - Review of Systems Constitutional: No: Chills, Fever Respiratory: No: Cough, Shortness of Breath Cardiac (ROS): No: Chest Pain ABD/GI: No: Nausea, Vomiting, Abdominal cramping : No: Dysuria Neurological: Yes: Headache, Weakness. No: Numbness *Physical Exam - Vital Signs Last Vital Signs Temp Pulse Resp BP Pulse Ox 97.7 F 64 20 164/61 98 11/04/18 12:52 11/04/18 12:52 11/04/18 12:52 11/04/18 12:52 11/04/18 12:52 - Physical Exam General Appearance: Yes: Appropriately Dressed. No: Apparent Distress HEENT: positive: Normal Voice Neck: positive: Supple Respiratory/Chest: positive: Lungs Clear, Normal Breath Sounds. negative: Respiratory Distress Cardiovascular: positive: Regular Rate, S1, S2 Gastrointestinal/Abdominal: positive: Soft. negative: Tender Musculoskeletal: negative: CVA Tenderness Integumentary: positive: Dry, Warm Neurologic: positive: Fully Oriented, Alert, Normal Mood/Affect, Motor Strength 07/20 ED Treatment Course - LABORATORY CBC & Chemistry Diagram: 11/04/18 14:00 11/04/18 14:00 Medical Decision Making - Medical Decision Making 11/04/18 13:38 83 yo history of hypertension, hyperlipidemia, IDDM, CKD, uterine ca, s/p surgery, CABG in 2009, s/p carotid endarderectomy 30 years ago, here for evaluation. Patient states she was in usual state of health until this a.m. when she was getting ready to leave her house when she suddenly became diaphoretic and felt weak. Finger stick at that time was 88. States her son gave her juice. Has been baseline since. Patient denies any chest pain, shortness of breath, headache, slurred speech, sensory changes or focal weakness. No symptoms at this time See exam Possible transient hypoglycemia this am, r/o ACS, unlikely TIA/CVA Asx Pt stable and well reji, w/ unremarkable exam ekg -labs -discuss dispo w/ referring PMD 11/04/18 15:30 EKG and labs unremarkable. Patient has remained stable and well appearing here with no symptoms at this time. Case discussed with Dr. La who states patient can be discharged to follow-up with him. Patient and family made aware and feels safe taking patient home. Strict return precautions given *DC/Admit/Observation/Transfer Diagnosis at time of Disposition: Diaphoresis - Discharge Dispostion Disposition: HOME Condition at time of disposition: Improved - Referrals - Patient Instructions Additional Instructions: Please return to ER for worsening of symptoms as discussed today otherwise, please follow up with DR Jerez - Post Discharge Activity
[2018-11-04 14:36] LABS: BASO % 0.5 % (0-2.0); EOS % 0.2 % (0-4.5); HEMATOCRIT 41.8 % (32.4-45.2); HEMOGLOBIN 13.8 GM/dL (10.7-15.3); MCH 30.6 pg (25.7-33.7); MCHC 33.1 g/dl (32.0-36.0); MEAN CELL VOLUME 92.3 fl (80-96); MEAN PLT VOLUME 9.7 fl (7.5-11.1); MONO % 5.1 % (3.8-10.2); NEUT % 85.2 % (42.8-82.8); PLATELET COUNT 214 K/MM3 (134-434); RBC 4.52 M/mm3 (3.60-5.2); RDW 14.4 % (11.6-15.6); WHITE BLOOD COUNT 10.2 K/mm3 (4.0-10.0)
[2018-11-04 14:57] LABS: EPI CELLS 0.9 /HPF (0-5/HPF); HYALINE CASTS 1 /lpf (0-8); PH,URINE 5.5 (5.0-8.0); URINE APPEARANCE CLEAR; URINE BACTERIA 15.1 /hpf (NEGATIVE); URINE BILIRUBIN NEGATIVE (NEGATIVE); URINE COLOR YELLOW; URINE GLUCOSE (UA) NEGATIVE (NEGATIVE); URINE KETONE NEGATIVE (NEGATIVE); URINE LEUK ESTERASE TRACE (NEGATIVE); URINE NITRITE NEGATIVE (NEGATIVE); URINE PROTEIN 1+ (NEGATIVE); URINE RBC 10 /hpf (0-4); URINE UROBILINOGEN 0.2 mg/dL (0.2-1.0); URINE WBC 1 /hpf (0-5)
[2018-11-04 15:25] LABS: ALBUMIN 3.4 g/dl (3.4-5.0); ALK PHOS 87 U/L (45-117); ANION GAP 9 MMOL/L (8-16); BILIRUBIN,TOTAL 0.5 mg/dL (0.2-1); BLOOD UREA NITROGEN 25.9 mg/dL (7-18); CALCIUM 9.5 mg/dL (8.5-10.1); CHLORIDE 101 mmol/L (98-107); CO2 31 mmol/L (21-32); CREATININE 1.6 mg/dL (0.55-1.3); GLUCOSE,RANDOM 166 mg/dL (74-106); POTASSIUM 3.7 mmol/L (3.5-5.1); SGOT/AST 30 U/L (15-37); SGPT/ALT 29 U/L (13-61); SODIUM 141 mmol/L (136-145); TOT PROT 6.5 g/dl (6.4-8.2)
--- NOTE | 2018-11-04 15:46 | PDOC ---
*Physical Exam - Vital Signs Last Vital Signs Temp Pulse Resp BP Pulse Ox 97.7 F 64 20 164/61 98 11/04/18 12:52 11/04/18 12:52 11/04/18 12:52 11/04/18 12:52 11/04/18 12:52 ED Treatment Course - LABORATORY CBC & Chemistry Diagram: 11/04/18 14:00 11/04/18 14:00 - ADDITIONAL ORDERS Additional order review: Laboratory Results 11/04/18 11/04/18 14:30 14:00 Sodium 141 Potassium 3.7 Chloride 101 Carbon Dioxide 31 Anion Gap 9 BUN 25.9 H Creatinine 1.6 H Est GFR (CKD-EPI)AfAm 33.94 Est GFR (CKD-EPI)NonAf 29.29 Random Glucose 166 H Calcium 9.5 Total Bilirubin 0.5 AST 30 ALT 29 Alkaline Phosphatase 87 Creatine Kinase 126 Troponin I < 0.02 Total Protein 6.5 Albumin 3.4 Urine Color Yellow Urine Appearance Clear Urine pH 5.5 Ur Specific [place] 1.008 L Urine Protein 1+ H Urine Glucose (UA) Negative Urine Ketones Negative Urine Blood 2+ H Urine Nitrite Negative Urine Bilirubin Negative Urine Urobilinogen 0.2 Ur Leukocyte Esterase Trace Urine WBC (Auto) 1 Urine RBC (Auto) 10 Urine Casts (Auto) 1 U Epithel Cells (Auto) 0.9 Urine Bacteria (Auto) 15.1 11/04/18 14:00 RBC 4.52 MCV 92.3 MCHC 33.1 RDW 14.4 MPV 9.7 Neutrophils % 85.2 H Lymphocytes % 9.0 D Monocytes % 5.1 Eosinophils % 0.2 D Basophils % 0.5 *DC/Admit/Observation/Transfer Diagnosis at time of Disposition: Diaphoresis - Discharge Dispostion Disposition: HOME Condition at time of disposition: Improved - Referrals Referrals: Arya La MD [Primary Care Provider] - - Patient Instructions Additional Instructions: Please return to ER for worsening of symptoms as discussed today otherwise, please follow up with DR Jerez - Post Discharge Activity
--- NOTE | 2018-11-04 15:51 | EKG ---
Test Reason : Blood Pressure : / mmHG Vent. Rate : 061 BPM Atrial Rate : 061 BPM P-R Int : 218 ms QRS Dur : 138 ms QT Int : 514 ms P-R-T Axes : 047 016 -07 degrees QTc Int : 517 ms SINUS RHYTHM WITH 1ST DEGREE A-V BLOCK RIGHT BUNDLE BRANCH BLOCK SEPTAL INFARCT , AGE UNDETERMINED ABNORMAL ECG WHEN COMPARED WITH ECG OF 30-OCT-2017 16:52, SEPTAL INFARCT IS NOW PRESENT Confirmed by MD JOSUÉ, LASHAY ([id number]) on 11/04/2018 3:50:45 PM Referred By: Confirmed By:LASHAY MOSES MD
== END 2018-11-04 15:50 | disposition home or self-care (01) ==
LOC: JER 12:30
DX: R61 Generalized hyperhidrosis (principal); E11.9 Type 2 diabetes mellitus without complications; I10 Essential (primary) hypertension; Z85.42 Personal history of malignant neoplasm of other parts of uterus; Z95.1 Presence of aortocoronary bypass graft
CPT/HCPCS: 36415; 80053; 81003; 82550; 84484; 85025; 93005; 93010; 99282-25

== ENCOUNTER 2020-08-29 13:49 | Inpatient (IN) | payer OTHER, BC ==
[2020-08-29 14:57] LABS: BASO % 0.7 % (0-2.0); HEMATOCRIT 25.9 % (32.4-45.2); HEMOGLOBIN 8.6 GM/dL (10.7-15.3); LYMPH % 9.2 % (8-40); MCH 32.2 pg (25.7-33.7); MCHC 33.2 g/dl (32.0-36.0); MEAN PLT VOLUME 10.3 fl (7.5-11.1); MONO % 7.2 % (3.8-10.2); NEUT % 82.9 % (42.8-82.8); PLATELET COUNT 186 10^3/uL (134-434); RBC 2.67 M/mm3 (3.60-5.2); RDW 13.7 % (11.6-15.6); WHITE BLOOD COUNT 10.8 K/mm3 (4.0-10.0)
[2020-08-29 15:05] LABS: INR 1.03 (0.83-1.09); PROTHROMBIN TIME (PATIENT) 12.5 SEC (9.7-13.0)
[2020-08-29 15:15] LABS: CALCIUM 9.4 mg/dL (8.5-10.1)
[2020-08-29 15:16] LABS: ALBUMIN 2.8 g/dl (3.4-5.0); BLOOD UREA NITROGEN 90.9 mg/dL (7-18)
[2020-08-29 15:19] LABS: CREATININE 2.8 mg/dL (0.55-1.3)
[2020-08-29 15:21] LABS: BILIRUBIN,TOTAL 0.5 mg/dL (0.2-1)
[2020-08-29] MEDS: hydrALAZINE HCL 50 MG TABLET (FP) PO SCH (21:57)
[2020-08-29] MEDS: SODIUM CHLORIDE 1,000 ML IV SCH (21:57)
[2020-08-29] MEDS: DOCUSATE SODIUM 100 MG CAPSULE (FP) PO SCH (21:58)
[2020-08-29] MEDS: SENNOSIDES 8.6MG TABLET (FP) PO SCH (21:58)
[2020-08-29] MEDS: ZINC OXIDE 20% TOPICAL OINTMENT 30 GM TUBE TP SCH (22:52)
[2020-08-29] MEDS: levETIRAcetam XR 500 MG TAB PO SCH (22:52)
[2020-08-30] MEDS: INSULIN SLIDING SCALE (NOVOLOG) 1 VIAL SQ SCH ×5 (06:34→21:15)
[2020-08-30 07:27] LABS: BASO % 0.8 % (0-2.0); HEMATOCRIT 25.6 % (32.4-45.2); HEMOGLOBIN 8.3 GM/dL (10.7-15.3); LYMPH % 9.4 % (8-40); MCH 31.6 pg (25.7-33.7); MCHC 32.6 g/dl (32.0-36.0); MEAN CELL VOLUME 96.9 fl (80-96); MEAN PLT VOLUME 10.4 fl (7.5-11.1); MONO % 7.8 % (3.8-10.2); PLATELET COUNT 173 10^3/uL (134-434); RBC 2.64 M/mm3 (3.60-5.2); RDW 13.4 % (11.6-15.6); WHITE BLOOD COUNT 12.3 K/mm3 (4.0-10.0)
[2020-08-30 07:46] LABS: ALBUMIN 2.7 g/dl (3.4-5.0); BLOOD UREA NITROGEN 86.9 mg/dL (7-18); MAGNESIUM 2.2 mg/dL (1.8-2.4)
[2020-08-30 07:49] LABS: CREATININE 2.7 mg/dL (0.55-1.3); PHOSPHOROUS 3.6 mg/dL (2.5-4.9)
[2020-08-30 07:50] LABS: BILIRUBIN,TOTAL 0.5 mg/dL (0.2-1); TOT PROT 5.9 g/dl (6.4-8.2)
[2020-08-30 07:51] LABS: IRON SERUM 40 ug/dL (50-175); TOTAL IRON BINDING CAPACITY 253 ug/dL (250-450)
[2020-08-30] MEDS: KCL 10 MEQ IVPB 10 MEQ/100 ML INFUS.BAG IVPB SCH ×3 (08:41→13:05)
[2020-08-30] MEDS: hydrALAZINE HCL 50 MG TABLET (FP) PO SCH ×2 (10:34→21:14)
[2020-08-30] MEDS: ZINC OXIDE 20% TOPICAL OINTMENT 30 GM TUBE TP SCH ×2 (10:34→21:16)
[2020-08-30] MEDS: DOCUSATE SODIUM 100 MG CAPSULE (FP) PO SCH ×2 (10:34→21:14)
[2020-08-30] MEDS: POLYETHYLENE GLYCOL 3350 119 GM BTL PO SCH (10:34)
[2020-08-30] MEDS: PANTOPRAZOLE SODIUM 40 MG VIAL IVPUSH SCH ×2 (10:40→21:15)
[2020-08-30] MEDS ORDERED: PT OWN MED DRAWER 7, Y5N ONE ×3 (11:31→21:05)
[2020-08-30] MEDS: MIRTAZAPINE 15 MG TABLET (FP) PO SCH (21:14)
[2020-08-30] MEDS: SENNOSIDES 8.6MG TABLET (FP) PO SCH (21:15)
[2020-08-30] MEDS: MELATONIN 5 MG TABLETS PO PRN (21:15)
[2020-08-30] MEDS: levETIRAcetam XR 500 MG TAB PO SCH (21:15)
[2020-08-30] MEDS: SODIUM CHLORIDE 1,000 ML IV SCH (22:40)
[2020-08-31] MEDS: INSULIN SLIDING SCALE (NOVOLOG) 1 VIAL SQ SCH ×4 (06:48→21:30)
[2020-08-31 07:26] LABS: BASO % 0.5 % (0-2.0); HEMATOCRIT 25.1 % (32.4-45.2); HEMOGLOBIN 8.1 GM/dL (10.7-15.3); LYMPH % 10.4 % (8-40); MCH 31.6 pg (25.7-33.7); MCHC 32.1 g/dl (32.0-36.0); MEAN CELL VOLUME 98.3 fl (80-96); MEAN PLT VOLUME 10.3 fl (7.5-11.1); MONO % 8.8 % (3.8-10.2); NEUT % 80.3 % (42.8-82.8); PLATELET COUNT 182 10^3/uL (134-434); RBC 2.55 M/mm3 (3.60-5.2); RDW 13.5 % (11.6-15.6); WHITE BLOOD COUNT 11.8 K/mm3 (4.0-10.0)
[2020-08-31 07:52] LABS: CHLORIDE 105 mmol/L (98-107); SODIUM 139 mmol/L (136-145)
[2020-08-31 08:01] LABS: ALBUMIN 2.6 g/dl (3.4-5.0); ANION GAP 9 MMOL/L (8-16); BLOOD UREA NITROGEN 86.7 mg/dL (7-18); CALCIUM 8.5 mg/dL (8.5-10.1); CO2 25 mmol/L (21-32); GLUCOSE,RANDOM 177 mg/dL (74-106)
[2020-08-31 08:04] LABS: BILIRUBIN,DIRECT 0.2 mg/dL (0.0-0.2); CREATININE 2.7 mg/dL (0.55-1.3); SGOT/AST 132 U/L (15-37); SGPT/ALT 259 U/L (13-61)
[2020-08-31 08:05] LABS: BILIRUBIN,TOTAL 0.4 mg/dL (0.2-1); TOT PROT 5.5 g/dl (6.4-8.2)
[2020-08-31 08:06] LABS: ALK PHOS 76 U/L (45-117)
[2020-08-31] MEDS ORDERED: PT OWN MED DRAWER 7, Y5N ONE ×2 (09:32→21:09)
[2020-08-31] MEDS: PANTOPRAZOLE SODIUM 40 MG VIAL IVPUSH SCH ×2 (09:35→21:30)
[2020-08-31] MEDS: hydrALAZINE HCL 50 MG TABLET (FP) PO SCH ×2 (09:35→21:29)
[2020-08-31] MEDS: DOCUSATE SODIUM 100 MG CAPSULE (FP) PO SCH ×3 (09:35→21:29)
[2020-08-31] MEDS: POLYETHYLENE GLYCOL 3350 119 GM BTL PO SCH ×2 (09:35→09:47)
[2020-08-31] MEDS: ZINC OXIDE 20% TOPICAL OINTMENT 30 GM TUBE TP SCH ×2 (09:36→21:30)
[2020-08-31] MEDS: SODIUM CHLORIDE 0.45% 1,000 ML IV SCH (13:38)
[2020-08-31 15:04] VITALS: BMI 22.1
[2020-08-31 17:10] LABS: HEP B CORE AB, TOT Negative (Negative)
[2020-08-31 19:54] LABS: EPI CELLS 16 /uL (0-25.1); HYALINE CASTS 1 /uL (0-3.1); URINE APPEARANCE CLOUDY; URINE BACTERIA 4952 /uL (0-1359); URINE BILIRUBIN NEGATIVE (NEGATIVE); URINE COLOR YELLOW; URINE GLUCOSE (UA) NEGATIVE (NEGATIVE); URINE KETONE NEGATIVE (NEGATIVE); URINE LEUK ESTERASE 2+ (NEGATIVE); URINE NITRITE NEGATIVE (NEGATIVE); URINE PROTEIN 2+ (NEGATIVE); URINE RBC 65 /uL (0-23.9); URINE UROBILINOGEN 0.2 mg/dL (0.2-1.0); URINE WBC 1679 /uL (0-25.8)
[2020-08-31] MEDS: levETIRAcetam XR 500 MG TAB PO SCH (21:29)
[2020-08-31] MEDS: MIRTAZAPINE 15 MG TABLET (FP) PO SCH (21:29)
[2020-08-31] MEDS: SENNOSIDES 8.6MG TABLET (FP) PO SCH (21:30)
[2020-09-01] MEDS: INSULIN SLIDING SCALE (NOVOLOG) 1 VIAL SQ SCH ×4 (06:22→22:19)
[2020-09-01 06:37] LABS: BASO % 0.6 % (0-2.0); HEMATOCRIT 26.3 % (32.4-45.2); HEMOGLOBIN 8.5 GM/dL (10.7-15.3); LYMPH % 8.9 % (8-40); MCH 31.8 pg (25.7-33.7); MCHC 32.3 g/dl (32.0-36.0); MEAN CELL VOLUME 98.4 fl (80-96); MEAN PLT VOLUME 10.5 fl (7.5-11.1); MONO % 9.8 % (3.8-10.2); NEUT % 80.7 % (42.8-82.8); PLATELET COUNT 178 10^3/uL (134-434); RBC 2.67 M/mm3 (3.60-5.2); RDW 13.7 % (11.6-15.6); WHITE BLOOD COUNT 11.7 K/mm3 (4.0-10.0)
[2020-09-01 06:58] LABS: CALCIUM 8.8 mg/dL (8.5-10.1)
[2020-09-01 06:59] LABS: ALBUMIN 2.5 g/dl (3.4-5.0)
[2020-09-01 07:01] LABS: CREATININE 2.8 mg/dL (0.55-1.3)
[2020-09-01 07:02] LABS: BILIRUBIN,DIRECT 0.2 mg/dL (0.0-0.2)
[2020-09-01 07:03] LABS: BILIRUBIN,TOTAL 0.5 mg/dL (0.2-1); TOT PROT 5.5 g/dl (6.4-8.2)
[2020-09-01] MEDS: hydrALAZINE HCL 50 MG TABLET (FP) PO SCH ×2 (10:33→22:11)
[2020-09-01] MEDS: POLYETHYLENE GLYCOL 3350 119 GM BTL PO SCH (10:34)
[2020-09-01] MEDS: DOCUSATE SODIUM 100 MG CAPSULE (FP) PO SCH ×2 (10:34→22:07)
[2020-09-01] MEDS: ZINC OXIDE 20% TOPICAL OINTMENT 30 GM TUBE TP SCH ×2 (10:34→22:11)
[2020-09-01] MEDS: PANTOPRAZOLE SODIUM 40 MG VIAL IVPUSH SCH ×2 (10:34→22:11)
[2020-09-01] MEDS: DRONABINOL 2.5 MG CAPSULE PO SCH (17:18)
[2020-09-01 19:08] LABS: GLIADIN ANTIBODY IGA 4 units (0-19); GLIADIN ANTIBODY IGG 2 units (0-19); TRANSGLUTAMINASE IGG < 2 U/mL (0-5)
[2020-09-01] MEDS ORDERED: PT OWN MED DRAWER 7, Y5N ONE (21:07)
[2020-09-01] MEDS: SENNOSIDES 8.6MG TABLET (FP) PO SCH (22:07)
[2020-09-01] MEDS: levETIRAcetam XR 500 MG TAB PO SCH (22:11)
[2020-09-01] MEDS: MIRTAZAPINE 15 MG TABLET (FP) PO SCH (22:11)
[2020-09-01] MEDS: MELATONIN 5 MG TABLETS PO PRN (22:17)
[2020-09-01] MEDS: SODIUM CHLORIDE 0.45% 1,000 ML IV SCH (22:18)
[2020-09-02] MEDS: INSULIN SLIDING SCALE (NOVOLOG) 1 VIAL SQ SCH ×4 (06:36→21:50)
[2020-09-02 07:08] LABS: ALBUMIN 2.4 g/dl (3.4-5.0)
[2020-09-02 07:11] LABS: BILIRUBIN,DIRECT 0.2 mg/dL (0.0-0.2)
[2020-09-02 07:13] LABS: BILIRUBIN,TOTAL 0.7 mg/dL (0.2-1); TOT PROT 5.4 g/dl (6.4-8.2)
[2020-09-02] MEDS: DOCUSATE SODIUM 100 MG CAPSULE (FP) PO SCH ×2 (10:12→21:49)
[2020-09-02] MEDS: PANTOPRAZOLE SODIUM 40 MG VIAL IVPUSH SCH ×2 (10:13→21:50)
[2020-09-02] MEDS: POLYETHYLENE GLYCOL 3350 119 GM BTL PO SCH (10:13)
[2020-09-02] MEDS: hydrALAZINE HCL 50 MG TABLET (FP) PO SCH ×2 (10:13→21:48)
[2020-09-02] MEDS: ZINC OXIDE 20% TOPICAL OINTMENT 30 GM TUBE TP SCH ×2 (10:14→21:50)
[2020-09-02] MEDS ORDERED: PT OWN MED DRAWER 7, Y5N ONE ×2 (11:25→21:38)
[2020-09-02] MEDS: DRONABINOL 2.5 MG CAPSULE PO SCH (17:24)
[2020-09-02] MEDS: FUROSEMIDE 40 MG TABLET (FP) PO SCH (21:48)
[2020-09-02] MEDS: SENNOSIDES 8.6MG TABLET (FP) PO SCH (21:48)
[2020-09-02] MEDS: levETIRAcetam XR 500 MG TAB PO SCH (21:49)
[2020-09-02] MEDS: MIRTAZAPINE 15 MG TABLET (FP) PO SCH (21:50)
[2020-09-02] MEDS: MELATONIN 5 MG TABLETS PO PRN (21:51)
[2020-09-03] MEDS: INSULIN SLIDING SCALE (NOVOLOG) 1 VIAL SQ SCH (06:29)
[2020-09-03] MEDS: DOCUSATE SODIUM 100 MG CAPSULE (FP) PO SCH (09:39)
[2020-09-03] MEDS: FUROSEMIDE 40 MG TABLET (FP) PO SCH (09:39)
[2020-09-03] MEDS: PANTOPRAZOLE SODIUM 40 MG VIAL IVPUSH SCH (09:39)
[2020-09-03] MEDS: hydrALAZINE HCL 50 MG TABLET (FP) PO SCH (09:39)
[2020-09-03 11:21] VITALS: BP 153/51; PULSE 64; TEMP 98.1
== END 2020-09-03 13:32 | DRG 812 ==
LOC: JER 13:49 → JERBED 15:55 → J4S 17:59
PROVIDERS: ATTEND Internal Medicine
DX: D62 Acute posthemorrhagic anemia (principal); I24.8 Other forms of acute ischemic heart disease; N17.9 Acute kidney failure, unspecified; K92.2 Gastrointestinal hemorrhage, unspecified; K86.2 Cyst of pancreas; D64.9 Anemia, unspecified; I25.10 Atherosclerotic heart disease of native coronary artery without angina pectoris; R62.7 Adult failure to thrive; Z68.22 Body mass index [BMI] 22.0-22.9, adult; I10 Essential (primary) hypertension; I12.9 Hypertensive chronic kidney disease with stage 1 through stage 4 chronic kidney disease, or unspecified chronic kidney disease; E11.22 Type 2 diabetes mellitus with diabetic chronic kidney disease; N18.9 Chronic kidney disease, unspecified; R63.0 Anorexia; E78.5 Hyperlipidemia, unspecified; E11.9 Type 2 diabetes mellitus without complications; K57.90 Diverticulosis of intestine, part unspecified, without perforation or abscess without bleeding; K64.9 Unspecified hemorrhoids; K44.9 Diaphragmatic hernia without obstruction or gangrene; F41.8 Other specified anxiety disorders; K76.0 Fatty (change of) liver, not elsewhere classified; H40.9 Unspecified glaucoma; K82.4 Cholesterolosis of gallbladder; R94.5 Abnormal results of liver function studies; E87.6 Hypokalemia; R74.8 Abnormal levels of other serum enzymes; Z95.1 Presence of aortocoronary bypass graft; Z86.73 Personal history of transient ischemic attack (TIA), and cerebral infarction without residual deficits; Z85.42 Personal history of malignant neoplasm of other parts of uterus; Z95.0 Presence of cardiac pacemaker; Z86.16 Personal history of COVID-19
CPT/HCPCS: 36415; 71045-TC-FY; 76705-TC; 76775-TC; 76856-TC; 80053; 80074; 80076; 80177; 81003; 82272; 82550; 82553; 82570; 82607; 82728; 82746; 82784; 82962; 83036; 83516; 83540; 83550; 83735; 84100; 84156; 84300; 84443; 84484; 85025; 85045; 85610; 86038; 86140; 86704; 86706; 86707; 86708; 86709; 86850; 86900; 86901; 87340; 93005; 93010; 97116-GP; 97161-GP; 99285-25; C9803; U0003; U0005

== ENCOUNTER 2020-11-30 10:37 | Inpatient (IN) | payer OTHER, BC ==
[2020-11-30 11:21] VITALS: BMI 23.1
[2020-11-30 12:13] LABS: BASO % 0.5 % (0-2.0); EOS % 0.1 % (0-4.5); HEMATOCRIT 25.6 % (32.4-45.2); HEMOGLOBIN 8.6 GM/dL (10.7-15.3); LYMPH % 6.7 % (8-40); MCH 32.7 pg (25.7-33.7); MCHC 33.4 g/dl (32.0-36.0); MEAN CELL VOLUME 97.7 fl (80-96); MEAN PLT VOLUME 7.9 fl (7.5-11.1); NEUT % 89.7 % (42.8-82.8); PLATELET COUNT 357 10^3/uL (134-434); RBC 2.63 M/mm3 (3.60-5.2); RDW 13.4 % (11.6-15.6); WHITE BLOOD COUNT 7.4 K/mm3 (4.0-10.0)
[2020-11-30 12:32] LABS: INR 0.9 (0.83-1.09); PROTHROMBIN TIME (PATIENT) 10.9 SEC (9.7-13.0)
[2020-11-30 12:36] LABS: CHLORIDE 97 mmol/L (98-107); SODIUM 135 mmol/L (136-145)
[2020-11-30 12:38] LABS: CALCIUM 9.3 mg/dL (8.5-10.1)
[2020-11-30 12:39] LABS: ALBUMIN 2.4 g/dl (3.4-5.0); ANION GAP 7 MMOL/L (8-16); BLOOD UREA NITROGEN 53.1 mg/dL (7-18); CO2 32 mmol/L (21-32); GLUCOSE,RANDOM 214 mg/dL (74-106)
[2020-11-30 12:42] LABS: CREATININE 3.7 mg/dL (0.55-1.3); SGOT/AST 18 U/L (15-37); SGPT/ALT 6 U/L (13-61)
[2020-11-30 12:43] LABS: BILIRUBIN,TOTAL 0.3 mg/dL (0.2-1); TOT PROT 6.7 g/dl (6.4-8.2)
[2020-11-30 12:44] LABS: ALK PHOS 70 U/L (45-117)
[2020-11-30] MEDS ORDERED: FUROSEMIDE 40 MG/4 ML INJECTABLE VIAL IVPUSH ONE (12:51)
[2020-11-30 12:59] LABS: N-TERMINAL BNP > 35000.0 pg/ml (5-450)
[2020-11-30] MEDS ORDERED: FUROSEMIDE 40 MG/4 ML INJECTABLE VIAL ONE (13:20)
[2020-11-30 15:35] LABS: CHLORIDE 98 mmol/L (98-107); SODIUM 137 mmol/L (136-145)
[2020-11-30 15:38] LABS: CALCIUM 9.1 mg/dL (8.5-10.1)
[2020-11-30 15:39] LABS: ALBUMIN 2.2 g/dl (3.4-5.0); ANION GAP 8 MMOL/L (8-16); CO2 31 mmol/L (21-32); GLUCOSE,RANDOM 205 mg/dL (74-106)
[2020-11-30 15:41] LABS: CREATININE 3.6 mg/dL (0.55-1.3); SGOT/AST 14 U/L (15-37); SGPT/ALT < 6 U/L (13-61)
[2020-11-30 15:43] LABS: BILIRUBIN,TOTAL 0.2 mg/dL (0.2-1)
[2020-11-30 15:45] LABS: ALK PHOS 63 U/L (45-117); BLOOD UREA NITROGEN 55.2 mg/dL (7-18)
[2020-11-30 16:11] LABS: EPI CELLS 10 /uL (0-25.1); HYALINE CASTS 2 /uL (0-3.1); PH,URINE 5.5 (5.0-8.0); URINE APPEARANCE CLEAR; URINE BACTERIA 35 /uL (0-1359); URINE BILIRUBIN NEGATIVE (NEGATIVE); URINE COLOR YELLOW; URINE GLUCOSE (UA) NEGATIVE (NEGATIVE); URINE KETONE NEGATIVE (NEGATIVE); URINE LEUK ESTERASE NEGATIVE (NEGATIVE); URINE NITRITE NEGATIVE (NEGATIVE); URINE PROTEIN 1+ (NEGATIVE); URINE UROBILINOGEN 0.2 mg/dL (0.2-1.0); URINE WBC 5 /uL (0-25.8)
[2020-11-30] MEDS: INSULIN SLIDING SCALE (NOVOLOG) 1 VIAL SQ SCH (19:23)
[2020-11-30 22:51] LABS: URINE RBC 75 /uL (0-23.9)
[2020-11-30] MEDS ORDERED: PANTOPRAZOLE 40 MG TABLET ONE (23:07)
[2020-11-30] MEDS ORDERED: hydrALAZINE HCL 25 MG TABLET (FP) ONE (23:07)
[2020-11-30] MEDS ORDERED: MIRTAZAPINE 15 MG TABLET (FP) ONE (23:08)
[2020-11-30] MEDS ORDERED: SENNOSIDES 8.6MG TABLET (FP) PO ONE (23:08)
[2020-11-30] MEDS ORDERED: DOCUSATE SODIUM 100 MG CAPSULE (FP) PO ONE (23:08)
[2020-11-30] MEDS: DOCUSATE SODIUM 100 MG CAPSULE (FP) PO SCH (23:32)
[2020-11-30] MEDS: SENNOSIDES 8.6MG TABLET (FP) PO SCH (23:32)
[2020-11-30] MEDS: MIRTAZAPINE 15 MG TABLET (FP) PO SCH (23:32)
[2020-11-30] MEDS: INSULIN (LEVEMIR) 100 UNITS/ML UNITS SQ SCH (23:32)
[2020-11-30] MEDS: hydrALAZINE HCL 50 MG TABLET (FP) PO SCH (23:32)
[2020-11-30] MEDS: PANTOPRAZOLE 40 MG TABLET PO SCH (23:32)
[2020-12-01] MEDS: LATANOPROST 0.005% OPHTH SOLN 2.5ML BOTTLE OU SCH
[2020-12-01] MEDS ORDERED: FUROSEMIDE 40 MG/4 ML INJECTABLE VIAL ONE (06:11)
[2020-12-01] MEDS: DORZOLAMIDE 2% HCL OPHTHALMIC SOLUTION 10 ML BOTTLE OD SCH ×3 (06:16→16:14)
[2020-12-01] MEDS: FUROSEMIDE 40 MG/4 ML INJECTABLE VIAL IVPUSH SCH ×2 (06:16→16:26)
[2020-12-01] MEDS: INSULIN SLIDING SCALE (NOVOLOG) 1 VIAL SQ SCH ×3 (08:05→18:36)
[2020-12-01] MEDS ORDERED: POLYETHYLENE GLYCOL (HEALTHYLAX) 3350 17 GM PACKET ONE (08:14)
[2020-12-01] MEDS ORDERED: levETIRAcetam 500 MG TABLET (FP) PO ONE (08:15)
[2020-12-01] MEDS ORDERED: DOCUSATE SODIUM 100 MG CAPSULE (FP) PO ONE (08:15)
[2020-12-01] MEDS ORDERED: PANTOPRAZOLE 40 MG TABLET ONE (08:15)
[2020-12-01 09:49] LABS: ALBUMIN 2.1 g/dl (3.4-5.0); BLOOD UREA NITROGEN 54.9 mg/dL (7-18); CALCIUM 8.6 mg/dL (8.5-10.1)
[2020-12-01 09:52] LABS: CREATININE 3.6 mg/dL (0.55-1.3)
[2020-12-01 09:55] LABS: BILIRUBIN,TOTAL 0.2 mg/dL (0.2-1); TOT PROT 5.8 g/dl (6.4-8.2)
[2020-12-01] MEDS: POLYETHYLENE GLYCOL (HEALTHYLAX) 3350 17 GM PACKET PO SCH (10:53)
[2020-12-01] MEDS: PANTOPRAZOLE 40 MG TABLET PO SCH (10:53)
[2020-12-01] MEDS: DOCUSATE SODIUM 100 MG CAPSULE (FP) PO SCH (10:53)
[2020-12-01] MEDS: levETIRAcetam XR 500 MG TAB PO SCH (10:53)
[2020-12-01] MEDS: hydrALAZINE HCL 50 MG TABLET (FP) PO SCH (10:58)
[2020-12-01] MEDS: PARICALCITOL 1 MCG CAP PO SCH (10:59)
[2020-12-01 18:35] LABS: BASO % 0.5 % (0-2.0); EOS % 1.1 % (0-4.5); HEMATOCRIT 21.3 % (32.4-45.2); HEMOGLOBIN 7.1 GM/dL (10.7-15.3); MCH 32.5 pg (25.7-33.7); MCHC 33.5 g/dl (32.0-36.0); MEAN CELL VOLUME 97.2 fl (80-96); MEAN PLT VOLUME 7.9 fl (7.5-11.1); MONO % 9.7 % (3.8-10.2); NEUT % 76.7 % (42.8-82.8); PLATELET COUNT 301 10^3/uL (134-434); RBC 2.19 M/mm3 (3.60-5.2); RDW 13.6 % (11.6-15.6); WHITE BLOOD COUNT 8.8 K/mm3 (4.0-10.0)
[2020-12-01] MEDS ORDERED: HEPARIN NA (PORCINE) 5,000 UNITS/ML 1ML VIAL SQ SCH (22:00)
[2020-12-01 22:26] LABS: BASO % 1.1 % (0-2.0); EOS % 1.6 % (0-4.5); HEMATOCRIT 22.5 % (32.4-45.2); HEMOGLOBIN 7.6 GM/dL (10.7-15.3); LYMPH % 11.2 % (8-40); MCH 32.8 pg (25.7-33.7); MCHC 33.7 g/dl (32.0-36.0); MEAN CELL VOLUME 97.4 fl (80-96); MEAN PLT VOLUME 7.5 fl (7.5-11.1); MONO % 8.8 % (3.8-10.2); NEUT % 77.3 % (42.8-82.8); PLATELET COUNT 338 10^3/uL (134-434); RBC 2.31 M/mm3 (3.60-5.2); RDW 13.4 % (11.6-15.6); WHITE BLOOD COUNT 9.9 K/mm3 (4.0-10.0)
[2020-12-01 22:34] LABS: INR 0.81 (0.83-1.09); PROTHROMBIN TIME (PATIENT) 9.9 SEC (9.7-13.0)
[2020-12-01 22:37] LABS: ACTIVATED PTT 35.2 SECONDS (25.2-36.5)
[2020-12-01 22:45] LABS: CHLORIDE 97 mmol/L (98-107); SODIUM 137 mmol/L (136-145)
[2020-12-01 22:48] LABS: CALCIUM 8.8 mg/dL (8.5-10.1)
[2020-12-01 22:50] LABS: ALBUMIN 2.2 g/dl (3.4-5.0); ANION GAP 8 MMOL/L (8-16); CO2 32 mmol/L (21-32); GLUCOSE,RANDOM 128 mg/dL (74-106); MAGNESIUM 2.8 mg/dL (1.8-2.4)
[2020-12-01 22:52] LABS: CREATININE 3.7 mg/dL (0.55-1.3); PHOSPHOROUS 5.5 mg/dL (2.5-4.9); SGOT/AST 13 U/L (15-37); SGPT/ALT < 6 U/L (13-61)
[2020-12-01 22:54] LABS: BILIRUBIN,TOTAL 0.2 mg/dL (0.2-1)
[2020-12-01 22:56] LABS: ALK PHOS 55 U/L (45-117)
[2020-12-02] MEDS ORDERED: ACETAMINOPHEN 1000 MG/100 ML VIAL (NON FORMULARY) IVPB ONE (00:29)
[2020-12-02] MEDS: hydrALAZINE HCL 50 MG TABLET (FP) PO SCH ×2 (02:31→11:03)
[2020-12-02] MEDS: DOCUSATE SODIUM 100 MG CAPSULE (FP) PO SCH ×2 (02:31→11:03)
[2020-12-02] MEDS: INSULIN (LEVEMIR) 100 UNITS/ML UNITS SQ SCH (02:31)
[2020-12-02] MEDS: MIRTAZAPINE 15 MG TABLET (FP) PO SCH (02:33)
[2020-12-02] MEDS: SENNOSIDES 8.6MG TABLET (FP) PO SCH (02:33)
[2020-12-02] MEDS: LATANOPROST 0.005% OPHTH SOLN 2.5ML BOTTLE OU SCH ×2 (02:33→23:49)
[2020-12-02] MEDS: DORZOLAMIDE 2% HCL OPHTHALMIC SOLUTION 10 ML BOTTLE OD SCH ×4 (02:33→23:48)
[2020-12-02] MEDS: PANTOPRAZOLE 40 MG TABLET PO SCH ×2 (02:33→11:03)
[2020-12-02] MEDS: FUROSEMIDE 40 MG/4 ML INJECTABLE VIAL IVPUSH SCH ×2 (06:57→14:36)
[2020-12-02] MEDS: INSULIN SLIDING SCALE (NOVOLOG) 1 VIAL SQ SCH ×3 (06:58→17:40)
[2020-12-02 08:22] LABS: HEMATOCRIT 21.5 % (32.4-45.2); HEMOGLOBIN 7.2 GM/dL (10.7-15.3); MCH 33.1 pg (25.7-33.7); MCHC 33.7 g/dl (32.0-36.0); MEAN CELL VOLUME 98.3 fl (80-96); MEAN PLT VOLUME 8.2 fl (7.5-11.1); PLATELET COUNT 299 10^3/uL (134-434); RBC 2.19 M/mm3 (3.60-5.2); RDW 13.3 % (11.6-15.6); WHITE BLOOD COUNT 9.3 K/mm3 (4.0-10.0)
[2020-12-02 08:49] LABS: ALBUMIN 2.3 g/dl (3.4-5.0); BLOOD UREA NITROGEN 54.9 mg/dL (7-18); CALCIUM 8.8 mg/dL (8.5-10.1)
[2020-12-02 08:52] LABS: CREATININE 3.5 mg/dL (0.55-1.3)
[2020-12-02 09:01] LABS: BILIRUBIN,TOTAL 0.3 mg/dL (0.2-1)
[2020-12-02] MEDS ORDERED: ASCORBIC ACID 500 MG TABLET (FP) PO SCH (10:00)
[2020-12-02] MEDS: POLYETHYLENE GLYCOL (HEALTHYLAX) 3350 17 GM PACKET PO SCH (11:03)
[2020-12-02] MEDS: levETIRAcetam XR 500 MG TAB PO SCH (11:03)
[2020-12-02] MEDS: FERROUS SO4 325 MG TABLET (FP) PO SCH (11:03)
[2020-12-02] MEDS: PARICALCITOL 1 MCG CAP PO SCH (11:03)
[2020-12-02] MEDS ORDERED: ACETAMINOPHEN 1000 MG/100 ML VIAL (NON FORMULARY) IVPB PRN (15:19)
[2020-12-02] MEDS ORDERED: METOPROLOL TARTRATE 5 MG/5 ML VIAL IVPUSH PRN (15:23)
[2020-12-02] MEDS ORDERED: INSULIN (LEVEMIR) 100 UNITS/ML UNITS SQ SCH (15:23)
[2020-12-02] MEDS: AMINO ACIDS 4.25%/D5W 1,000 ML IV SCH (16:13)
[2020-12-02] MEDS: ASPIRIN 300 MG SUPP.RECT PR SCH (16:13)
[2020-12-02] MEDS ORDERED: FUROSEMIDE 40 MG/4 ML INJECTABLE VIAL IVPUSH ONE (22:03)
[2020-12-02] MEDS: levETIRAcetam 500 MG/5 ML INJECTION VIAL IVPB SCH (23:43)
[2020-12-03] MEDS: INSULIN SLIDING SCALE (NOVOLOG) 1 VIAL SQ SCH ×2 (07:02→12:49)
[2020-12-03] MEDS: FUROSEMIDE 40 MG/4 ML INJECTABLE VIAL IVPUSH SCH ×2 (07:02→15:08)
[2020-12-03] MEDS: DORZOLAMIDE 2% HCL OPHTHALMIC SOLUTION 10 ML BOTTLE OD SCH ×2 (07:05→15:08)
[2020-12-03] MEDS ORDERED: PT OWN MED DRAWER 7, Y5N ONE (08:30)
[2020-12-03 10:13] LABS: EPI CELLS 2 /uL (0-25.1); HYALINE CASTS 2 /uL (0-3.1); URINE APPEARANCE CLEAR; URINE BACTERIA 951 /uL (0-1359); URINE BILIRUBIN NEGATIVE (NEGATIVE); URINE COLOR YELLOW; URINE GLUCOSE (UA) NEGATIVE (NEGATIVE); URINE KETONE NEGATIVE (NEGATIVE); URINE LEUK ESTERASE 2+ (NEGATIVE); URINE NITRITE NEGATIVE (NEGATIVE); URINE PROTEIN 2+ (NEGATIVE); URINE RBC 12 /uL (0-23.9); URINE UROBILINOGEN 0.2 mg/dL (0.2-1.0); URINE WBC 204 /uL (0-25.8)
[2020-12-03] MEDS ORDERED: MORPHINE SULFATE 2 MG/ML VIAL IVPUSH PRN (11:28)
[2020-12-03] MEDS: levETIRAcetam 500 MG/5 ML INJECTION VIAL IVPB SCH (11:28)
[2020-12-03] MEDS: FERROUS SO4 325 MG TABLET (FP) PO SCH (11:30)
[2020-12-03] MEDS: ASPIRIN 300 MG SUPP.RECT PR SCH (11:32)
[2020-12-03 13:58] VITALS: BP 82/43; PULSE 67; TEMP 96.8
[2020-12-03] MEDS: SCOPOLAMINE HYDROBROMIDE 1 PATCH PATCH.TD72 TD SCH ×2 (15:30→16:19)
[2020-12-03] MEDS: AMINO ACIDS 4.25%/D5W 1,000 ML IV SCH (15:30)
== END 2020-12-03 18:30 | disposition expired | DRG 64 ==
LOC: JER 10:37 → JERBED 13:39 → J4W 12-01 14:03
PROVIDERS: ADMIT Internal Medicine; ATTEND Internal Medicine
PROC: 30233N1 Transfusion of Nonautologous Red Blood Cells into Peripheral Vein, Percutaneous Approach (ICD-10-PCS; principal; 2020-12-02)
DX: I63.9 Cerebral infarction, unspecified (principal); I50.33 Acute on chronic diastolic (congestive) heart failure; I13.0 Hypertensive heart and chronic kidney disease with heart failure and stage 1 through stage 4 chronic kidney disease, or unspecified chronic kidney disease; N17.9 Acute kidney failure, unspecified; I24.8 Other forms of acute ischemic heart disease; E03.9 Hypothyroidism, unspecified; E10.9 Type 1 diabetes mellitus without complications; N18.9 Chronic kidney disease, unspecified; I46.9 Cardiac arrest, cause unspecified; E87.5 Hyperkalemia; D64.9 Anemia, unspecified; I25.119 Atherosclerotic heart disease of native coronary artery with unspecified angina pectoris; Z95.1 Presence of aortocoronary bypass graft; Z98.61 Coronary angioplasty status
CPT/HCPCS: 36415; 36430; 70450-TC; 70486-TC; 71045-TC-FY; 72125-TC; 73030-TC-LT-FY; 73030-TC-RT-FY; 73070-TC-LT-FY; 73070-TC-RT-FY; 73523-TC-FY; 73560-TC-LT-FY; 73560-TC-RT-FY; 73610-TC-LT-FY; 73610-TC-RT-FY; 73630-TC-LT; 73630-TC-RT-FY; 76775-TC; 80053; 81003; 82550; 82962; 83735; 83880; 84100; 84484; 85025; 85027; 85610; 85730; 86850; 86900; 86901; 93005; 93010; 93306-TC; 99285-25; C9803; J0131; P9017; U0003; U0005